=== PATIENT | male | born 1970 | race Caucasian/White ===

== ENCOUNTER 2018-01-01 14:39 | Emergency (ER) | payer BC, SELFPAY ==
[2018-01-01] VITALS (7 sets, daily range): BP systolic 112–167; BP diastolic 70–121; PULSE 62–105; RESP 12–22; TEMP 36.6; O2SAT 95–99; BMI 26.2
--- NOTE | 2018-01-01 14:49 | EKG12_ITS ---
Test Reason : CP Blood Pressure : / mmHG Vent. Rate : 085 BPM Atrial Rate : 085 BPM P-R Int : 154 ms QRS Dur : 080 ms QT Int : 374 ms P-R-T Axes : 061 038 059 degrees QTc Int : 445 ms Normal sinus rhythm Normal ECG Confirmed by KRISTAL RAMOS, ZACHARY ([id number]), greeting card editor LUC DOYLE ([id number]) on 01/02/2018 2:28:49 PM Referred By: SHANT Confirmed By:ZACHARY GIRALDO MD
[2018-01-01] MEDS: Aspirin 81 MG TAB.CHEW 324 MG PO (14:54)
--- NOTE | 2018-01-01 15:00 | RAD_ITS ---
STUDY: X-RAY CHEST REASON FOR EXAM: Male, 47 years old. CHEST PAIN X 2 DAYS TECHNIQUE: Single AP portable view of the chest. COMPARISON: December 26, 2008 FINDINGS: There is a stable left upper chest calcification suggesting a calcified granuloma. There is no demonstrated pleural abnormality. Normal size heart. Normal mediastinum and seema. Normal visualized pulmonary arteries. Normal visualized aortic arch and descending thoracic aorta. Normal visualized thoracic spine. Normal visualized ribs, clavicles, and shoulders. There is no demonstrated abnormality of the visualized soft tissue structures of the upper abdomen. RAD/Chest 1 View (Portable) IMPRESSION: No acute disease is demonstrated. Electronically Signed: Nidia Marte MD at 15:31 EDT , Service support ,
[2018-01-01] MEDS: morphine 8 MG/ML Syringe IV (15:14)
[2018-01-01] MEDS: Ondansetron 4 MG/2 ML Vial IV (15:15)
[2018-01-01 15:18] LABS: Absolute Lymphocyte Count 0.86 X10^3/ul (0.83-4.51); Absolute Neutrophil Count 2.5 X10^3/uL (2.0-7.7); Basophil# 0.03 X10^3/uL; Basophil% 0.8 % (0-1); Eosinophil# 0.03 X10^3/uL; Eosinophils% 0.8 % (0-5); Hematocrit 43.3 % (40-54); Lymphocyte # 0.86 X10^3/ul (4.0); Lymphocyte % 21.8 % (19-41); Mean Corp Hgb Conc 34.6 g/gl (32-36); Mean Corpuscular Hgb 35.3 pg (27.0-32.0); Mean Corpuscular Volume 101.9 fL (80-94); Mean Platelet Vol. 10.4 fl (6.2-12.0); Monocyte% 12.7 % (0-10); Neutrophil # 2.52 X10^3/uL (2.7-7.7); Neutrophil % 63.9 % (47-70); POSITIVE COUNT NO; POSITIVE DIFFERENTIAL NO; POSITIVE MORPHOLOGY NO; Platelet Count 83 K/mm3 (150-450); RBC Distribution Width CV 12.3 % (11.6-14.6); RBC Distribution Width SD 45.8 fl (35.1-43.9); Red Blood Count 4.25 M/mm3 (4.6-6.2); White Blood Count 3.9 K/mm3 (4.4-11.0)
--- NOTE | 2018-01-01 15:18 | ED.VISSUMM ---
- ER Visit Summary Date of Service: 01/01/18 Chief Complaint: [] Chest pain History of Present Illness: The patient is a 47 M [] complains of left-sided chest pain that began before noon he was driving his car he had no associated symptoms of vomiting shortness of breath diaphoresis or radiation. He became concerned about the pain he came in for evaluation on arrival his symptoms had resolved he has no history of TX PE DVT he denies smoking alcohol or illicit drug use no history of high cholesterol or family history he can recall. 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 He assures me he is asymptomatic now his review of systems otherwise all negative he indicates he has been under quite a bit of stress. Physical Examination: [] Pressure is 170 over about 80 he is in no distress head neck chest unremarkable lungs are clear heart tones are normal abdomen soft nontender upper lower extremities unremarkable neurologically is awake moving all 4 for his lower extremity feel no sinus clubbing or edema pulses are symmetric he assures me he is without any pain he has no symptoms now Test Results: [] Emergency Department Course and Treatment: []EEG shows a sinus rhythm nothing acute his labs and troponin are negative and his chest x-ray please see all those reports on reevaluation vital signs are normal his blood pressure now is 130/80 with no specific therapy he assures me he feels fine and has not has no symptoms. We discussed the chest pain the need for admission for further management, however he declined admission stating he wanted to go home and preferred outpatient management he understood the risk of sudden cardiac , clearly demonstrated capacity to understand my concerns but again preferred outpatient management he did agree to stay for a second troponin and if this is negative he will follow-up his family doctor to undergo further outpatient management and I will also give him referral to [facility], he will take 2 baby aspirin a day until followed up, second troponin is pending and will be on the chart Treatment Plan: [] Disposition: [] Home stable pending second troponin Impression: [] chest Pain resolved patient declined admission This note was generated with [employer] dictation software. It may contain incorrect words, spelling, and punctuation that were not noted in review of the chart prior to signing ED Disposition - Plan for ED Patient: Chief Complaint: Chest Pain Instructions: ED Chest Pain Atypical Unkn Cause Referrals: Ned Martníez MD [STAFF PHYSICIAN] - Temo Cruz MD [Primary Care Provider] -
[2018-01-01] MEDS: cloNIDine HCl 0.1 MG Tablet 0.2 MG PO (15:24)
[2018-01-01 15:29] LABS: Anion Gap 8 (5-15); BUN 6 mg/dL (7-18); BUN/Creat Ratio 5.2 RATIO (10-20); Calcium,Total 8.9 mg/dL (8.5-10.1); Chloride 102 mmol/L (98-107); Creatinine, Serum 1.15 mg/dL (0.70-1.30); EST Glomerular Filtration Rate 72 mL/min (>60); Est Glom Filt Rate - Afr Amer 87 mL/min (>60); Estimated Creatinine Clearance 84.58 ml/min; Glucose 113 mg/dL (74-106); Potassium 3.8 mmol/L (3.5-5.1); Sodium Level 139 mmol/L (136-145)
[2018-01-01 15:43] LABS: AST(SGOT) 94 U/L (15-37); Alanine Aminotransfer ALT/SGPT 70 U/L (16-61); Alkaline Phosphatase 123 U/L (45-117); Bilirubin, Direct 0.53 mg/dL (0.00-0.30); Globulin 4.2 g/dL (2.2-4.2); Protein, Total 8.2 g/dL (6.4-8.2)
[2018-01-01 15:47] LABS: BNP,B-Type NATRIURETIC PEPTIDE 75.2 pg/mL (0-100)
--- NOTE | 2018-01-01 16:29 | ED.DEP ---
ED Disposition - Plan for ED Patient: Chief Complaint: Chest Pain Instructions: ED Chest Pain Atypical Unkn Cause Referrals: Temo Cruz MD [Primary Care Provider] - Ned Martínez MD [STAFF PHYSICIAN] -
== END 2018-01-01 17:55 | disposition home or self-care (01) ==
PROVIDERS: Emergency Provider Emergency Medicine; Family Provider Physician Assistant; PCP Family Medicine
DX: R07.9 Chest pain, unspecified (principal); Z79.899 Other long term (current) drug therapy
CPT/HCPCS: 71045; 80048; 80076; 83880; 84484; 85025; 93005; 96374; 96375; 99284; J7030; A4216; J2405

== ENCOUNTER 2018-01-05 10:05 | Observation (INO) | payer BC, SELFPAY ==
[2018-01-05] VITALS (11 sets, daily range): BP systolic 124–156; BP diastolic 90–111; PULSE 65–118; RESP 10–19; TEMP 35.9–37.2; O2SAT 92–98; BMI 25.7; BMI 25.1; BMI 25.2
--- NOTE | 2018-01-05 10:46 | RAD_ITS ---
STUDY: X-RAY CHEST REASON FOR EXAM: Male, 48 years old. Substernal chest pain TECHNIQUE: Single AP portable view of the chest. COMPARISON: 01/01/2018 FINDINGS: The lungs are clear and expanded. There is no demonstrated pleural abnormality. Normal size heart. Normal mediastinum and seema. Normal visualized pulmonary arteries. Normal visualized aortic arch and descending thoracic aorta. Normal visualized thoracic spine. Normal visualized ribs, clavicles, and shoulders. There is no demonstrated abnormality of the visualized soft tissue structures of the upper abdomen. RAD/Chest 1 View (Portable) IMPRESSION: No acute pulmonary process Electronically Signed: Ludwin Mcgrath MD at 11:10 EDT , Service support ,
--- NOTE | 2018-01-05 10:46 | EKG12_ITS ---
Test Reason : CP Blood Pressure : / mmHG Vent. Rate : 116 BPM Atrial Rate : 116 BPM P-R Int : 152 ms QRS Dur : 084 ms QT Int : 322 ms P-R-T Axes : 049 026 057 degrees QTc Int : 447 ms Sinus tachycardia Otherwise normal ECG Confirmed by KRISTAL RAMOS, ZACHARY ([id number]), sports editor LUC DOYLE ([id number]) on 01/08/2018 3:20:54 PM Referred By: AUDRA Confirmed By:ZACHARY GIRALDO MD
--- NOTE | 2018-01-05 10:46 | CT_ITS ---
STUDY: CTA CHEST REASON FOR EXAM: Male, 48 years old. Substernal chest pain RADIATION DOSAGE (If Supplied By Facility): CTDIvol = ( 13.34 ) mGy, DLP = ( 513.75 ) mGycm TECHNIQUE: The examination was performed with the intravenous administration of 100cc ml of Isovue 370 contrast material. Post-processing of the angiographic images was performed, with multiplanar reformation and 3D reconstruction. Individualized dose optimization techniques were used for this CT. COMPARISON: None. FINDINGS: There is limited enhancement of the main pulmonary artery and right and left pulmonary arteries. There is limited enhancement of the bilateral peripheral pulmonary arteries. There is no demonstrated pulmonary embolism. However, because the bolus within the pulmonary arteries is not optimal and a subtle filling defect could be present and overlooked. Normal thoracic aorta and visualized great vessels. There is no demonstrated aortic dissection. Normal heart and pericardium. Normal mediastinum. Normal hilar regions. Normal visualized trachea and bronchi. The lungs are well expanded. Normal pulmonary parenchyma. Normal pleura. Normal chest wall structures. Normal osseous structures. Limited cuts through the upper abdomen show a retrocardiac hiatal hernia, and diffuse fatty infiltration of the liver. CT/CTA Chest W/WO Contrast IMPRESSION: No demonstrated PE, or thoracic aortic aneurysm or dissection. However, contrast bolus within the pulmonary arteries is not optimal. No superimposed acute pulmonary process Prominent retrocardiac hiatal hernia Fatty liver Electronically Signed: Ludwin Mcgrath MD at 11:40 EDT , Service support ,
[2018-01-05] MEDS: Aspirin 81 MG TAB.CHEW 324 MG PO (10:59)
[2018-01-05 11:07] LABS: Absolute Lymphocyte Count 1.79 X10^3/ul (0.83-4.51); Absolute Neutrophil Count 2.4 X10^3/uL (2.0-7.7); Basophil# 0.04 X10^3/uL; Basophil% 0.8 % (0-1); Eosinophil# 0.13 X10^3/uL; Eosinophils% 2.7 % (0-5); Hematocrit 42.5 % (40-54); Lymphocyte # 1.79 X10^3/ul (4.0); Lymphocyte % 36.6 % (19-41); Mean Corpuscular Volume 100.7 fL (80-94); Mean Platelet Vol. 10.4 fl (6.2-12.0); Monocyte# 0.57 X10^3/uL; Monocyte% 11.7 % (0-10); Neutrophil # 2.36 X10^3/uL (2.7-7.7); Neutrophil % 48.2 % (47-70); Platelet Count 118 K/mm3 (150-450); RBC Distribution Width CV 12.7 % (11.6-14.6); RBC Distribution Width SD 47.7 fl (35.1-43.9); Red Blood Count 4.22 M/mm3 (4.6-6.2); White Blood Count 4.9 K/mm3 (4.4-11.0)
[2018-01-05 11:13] LABS: Mean Corp Hgb Conc 35.3 g/gl (32-36); Mean Corpuscular Hgb 35.5 pg (27.0-32.0); POSITIVE COUNT NO; POSITIVE DIFFERENTIAL NO; POSITIVE MORPHOLOGY NO
[2018-01-05 11:14] LABS: Anion Gap 8 (5-15); BUN 11 mg/dL (7-18); BUN/Creat Ratio 10.5 RATIO (10-20); Calcium,Total 9.2 mg/dL (8.5-10.1); Chloride 105 mmol/L (98-107); Creatinine, Serum 1.05 mg/dL (0.70-1.30); EST Glomerular Filtration Rate 80 mL/min (>60); Est Glom Filt Rate - Afr Amer 97 mL/min (>60); Estimated Creatinine Clearance 91.63 ml/min; Glucose 105 mg/dL (74-106); Potassium 3.5 mmol/L (3.5-5.1); Sodium Level 142 mmol/L (136-145)
[2018-01-05 11:15] LABS: AST(SGOT) 137 U/L (15-37); Alanine Aminotransfer ALT/SGPT 82 U/L (16-61); Albumin, Serum 4.2 g/dL (3.2-5.0); Alkaline Phosphatase 150 U/L (45-117); Bilirubin, Direct 0.33 mg/dL (0.00-0.30); Globulin 4.4 g/dL (2.2-4.2); Protein, Total 8.6 g/dL (6.4-8.2)
--- NOTE | 2018-01-05 12:33 | ED.DCSUM_ITS ---
- ER Visit Summary Date of Service: 01/05/18 Chief Complaint: Chest pain History of Present Illness: The patient is a 48 M chest pain for several days. The pain waxes and wanes. It is retrosternal. Associated with shortness of breath. He was seen previously. His workup was unremarkable and he was discharged for an outpatient stress test. The patient was unable to schedule the test. He is a smoker, but denies any other risk factors. Denies any cardiac history. Denies any history of PE or dissection. Does report a high level of stress. He does report a history of alcohol abuse, but now seldom drinks alcohol. He was hospitalized in the past for liver and renal failure which she attributes to stress and alcohol use. He follows with his primary care doctor for checkups every 6 months. Physical Examination: Afebrile. Tachycardic. Otherwise vitals normal. Nontoxic and in no acute distress. Alert and oriented. Skin appears normal. Heart regular. Lungs clear. Abdomen soft. Skin, calves, pulses otherwise unremarkable. Test Results: EKG showed sinus rhythm. No sign of acute ischemia or infarction pattern. Liver enzymes slightly elevated. CBC unremarkable. Troponin normal. CTA was slightly limited, but there was no evidence of dissection or large infarct. Emergency Department Course and Treatment: Patient was placed on a monitor. Chest pain workup performed. Workup largely unremarkable. He is low risk for heart disease, but given his continued symptoms and that he was unable to get a stress test done, I called the hospitalist to admit. Treatment Plan: As above Disposition: Admission Impression: 1. Chest pain This note was generated with [employer] dictation software. It may contain incorrect words, spelling, and punctuation that were not noted in review of the chart prior to signing ED Disposition - Plan for ED Patient: Chief Complaint: Chest Pain
--- NOTE | 2018-01-05 14:48 | PCM.HP.STD ---
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 He was seen in ER on 01/01 2018 and was sent home after 2 troponins were negative. Patient chest pain resolved when he left the ER but came back on weekend which has persistent left-sided chest pain without associated symptoms of shortness of breath, palpitation, dizziness or diaphoresis. EKG shows sinus tachycardia at [address]-T changes. Troponins were normal on January 01 ER visit and here too. He was transferred to [facility] during previous admission in 2014 for acute liver failure secondary to alcohol where he was kept for 21 days. Initial lab work in ER shows AST 137, ALT 82, alk phos 150. GGT 910. He states he occasionally drinks alcohol once in a week and about 1-2 drinks. He gets 6 monthly ultrasound by PCP. 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 Alcoholic hepatitis with ascites (Chronic) recent......diagnosed 12/30 Allergies No Known Allergies Allergy (Verified 01/05/18 10:09) Home Medications: Ambulatory Orders Medication Instructions Recorded Pantoprazole Sodium [Protonix] 40 mg PO DAILY 01/05/18 Surgical History: noncontributory Psychiatric History: Anxiety, Depression Smoking Status: Current some day smoker - *Family History Maternal History Items: No pertinent history - No history of heart disease in first-degree family relative Review of Systems Constitutional: Denies: Chills, Fever, Weight Change HEENT: Denies: Head Aches, Sinus Congestion, Sinus Drainage Cardiovascular: Denies: Chest Pain, Palpitations Respiratory: Denies: Cough, Shortness of breath at rest, Sputum production Gastrointestinal: Denies: Abdominal Pain, Nausea, Vomiting Genitourinary: Denies: Dysuria Musculoskeletal: Denies: Joint Pain, Joint Tenderness Skin: Denies: Rash, Wounds Neurological: Denies: Numbness, Tingling, Focal weakness Psychiatric: Denies: Anxiety, Depression, Homicidal Ideations, Suicidal Ideations Hematologic/ Lymphatic: Denies: Easy Bruising, Easy Bleeding VTE Information - Inpt Only VTE Present on Admission: No VTE Mechan Device Prophylaxis: SCD's VTE Pharm Prophylaxis ordered?: No Reason prophylaxis not ordered:: Medical Contraindication - Thrombocytopenia - Physical Exam General: Alert, Oriented x3, Cooperative HEENT: Atraumatic, PERRLA, EOMI, Normocephalic Neck: Supple, No JVD, Negative Carotid Bruits Lungs: Clear to auscultation, Normal air movement, No rhonchi, No wheeze, No rales Cardiovascular: Regular rate, Regular Rhythm, Normal S1, Normal S2, No murmurs Abdomen: Bowel Sounds Present, Soft, Non Tender Extremities: No edema, Capillary Refill Less than 3 Seconds Skin: No rashes, No breakdown Musculoskeletal: No Tenderness to Palpation of Joints or Extremities Neurological: Cranial nerves II-XII grossly intact Psych/Mental Status: Normal Affect, Appropriate Vital Signs Temp Pulse Resp BP Pulse Ox 98.7 F 72 16 143/93 H 97 01/05/18 13:17 01/05/18 13:41 01/05/18 13:17 01/05/18 13:17 01/05/18 13:17 Oxygen Delivery Method Room Air Weight: 180 lb 5.41 oz Body Mass Index (BMI) 25.1 Laboratory Tests Past 24 Hrs 01/05/18 01/05/18 01/05/18 10:10 10:10 10:10 WBC 4.9 RBC 4.22 L Hgb 15.0 Hct 42.5 MCV 100.7 H MCH 35.5 H MCHC 35.3 RDW 12.7 RDW Differential 47.7 H Plt Count 118 L MPV 10.4 Immature Gran % (Auto) 0.000 Neut % (Auto) 48.2 Lymph % (Auto) 36.6 Wilkes % (Auto) 11.7 H Eos % (Auto) 2.7 Baso % (Auto) 0.8 Absolute Neuts (auto) 2.4 Absolute Lymphs (auto) 1.79 Total Counted Not Reportable Sodium 142 Potassium 3.5 Chloride 105 Carbon Dioxide 29.0 Anion Gap 8 BUN 11 Creatinine 1.05 Estim Creat Clear Calc 91.63 Est GFR (MDRD) Af Amer 97 Est GFR (MDRD) Non-Af 80 BUN/Creatinine Ratio 10.5 Glucose 105 Calcium 9.2 Total Bilirubin 0.70 Direct Bilirubin 0.33 H GGT AST 137 H ALT 82 H Alkaline Phosphatase 150 H Troponin I < 0.02 Total Protein 8.6 H Albumin 4.2 Globulin 4.4 H Ethyl Alcohol 01/05/18 01/05/18 01/05/18 14:20 14:20 14:20 WBC RBC Hgb Hct MCV MCH MCHC RDW RDW Differential Plt Count MPV Immature Gran % (Auto) Neut % (Auto) Lymph % (Auto) Wilkes % (Auto) Eos % (Auto) Baso % (Auto) Absolute Neuts (auto) Absolute Lymphs (auto) Total Counted Sodium Potassium Chloride Carbon Dioxide Anion Gap BUN Creatinine Estim Creat Clear Calc Est GFR (MDRD) Af Amer Est GFR (MDRD) Non-Af BUN/Creatinine Ratio Glucose Calcium Total Bilirubin Direct Bilirubin GGT Pending AST ALT Alkaline Phosphatase Troponin I Pending Total Protein Albumin Globulin Ethyl Alcohol Pending Assessment/Plan The patient is a 48 year old M with history of chronic alcoholic hepatitis with history of acute hepatic failure secondary to alcohol in 2014 came to ER with chest pain for last 4-5 days. He was seen in ER on 01/01 2018 and was sent home after 2 troponins were negative. Patient chest pain resolved when he left the ER but came back on weekend which has persistent left-sided chest pain without associated symptoms of shortness of breath, palpitation, dizziness or diaphoresis. EKG shows sinus tachycardia at [address]-T changes. Troponins were normal on January 01 ER visit and here too. He was transferred to [facility] during previous admission in 2014 for acute liver failure secondary to alcohol where he was kept for 21 days. Initial lab work in ER shows AST 137, ALT 82, alk phos 150. GGT 910. He states he occasionally drinks alcohol once in a week and about 1-2 drinks. He gets 6 monthly ultrasound by PCP. 1. Atypical chest pain most probably musculoskeletal: Patient is being admitted in PCU. On ACS protocol with serial troponin enzymes. Treadmill nuclear stress test tomorrow morning if troponins are negative. 2. Chronic alcoholic hepatitis with elevated liver enzymes and mild thrombocytopenia: Alcohol cessation advice was given. His labs was history that his drinking more than what he said. 3. Borderline hypertension: He is concerned of high blood pressure. Monitor blood pressure, and if persistently more than 140/90 mmhg, need lisinopril 5 mg daily to start with. DVT prophylaxis: On bilateral SCDs. Pharmacological prophylaxis contraindicated because of thrombocytopenia. This note was generated with [employer] dictation software. Every effort was made to ensure accuracy, however computerized senior quality control inspector mistakes may persist. Code Visit OBSV E&M: 60928 Initial observation care L3
[2018-01-05 14:53] LABS: GGTP 910 U/L (15-85)
[2018-01-05] MEDS: Lisinopril 5 MG Tablet PO (15:41)
[2018-01-05 15:50] LABS: Magnesium 1.6 mg/dL (1.6-2.6)
[2018-01-05 18:28] LABS: BNP,B-Type NATRIURETIC PEPTIDE 4.4 pg/mL (0-100)
[2018-01-05 18:30] LABS: Amphetamine Urine VISTA NEGATIVE (<1000 ng/mL); Barbiturate Urine VISTA NEGATIVE (< 200 ng/mL); Benzodiazepine Urine VISTA NEGATIVE (< 200 ng/mL); Cocaine Urine VISTA NEGATIVE (< 300 ng/mL); Ecstacy Urine VISTA NEGATIVE (< 500 ng/mL); Methadone Urine VISTA NEGATIVE (< 300 ng/mL); PCP Urine VISTA NEGATIVE (< 25 ng/mL); THC Urine VISTA NEGATIVE (< 50 ng/mL); Vista UDS pH Range 6
[2018-01-06 02:04] VITALS: BP 150/95; PULSE 73; RESP 18; TEMP 35.9; O2SAT 97
[2018-01-06 03:41] VITALS: PULSE 59
[2018-01-06 05:14] LABS: Absolute Neutrophil Count 1.7 X10^3/uL (2.0-7.7); Basophil# 0.01 X10^3/uL; Basophil% 0.3 % (0-1); Eosinophil# 0.08 X10^3/uL; Eosinophils% 2.7 % (0-5); Hematocrit 42.3 % (40-54); Hemoglobin 14.9 g/dl (13.0-16.5); Lymphocyte % 29.9 % (19-41); Mean Corp Hgb Conc 35.2 g/gl (32-36); Mean Corpuscular Hgb 35.9 pg (27.0-32.0); Mean Corpuscular Volume 101.9 fL (80-94); Mean Platelet Vol. 10.4 fl (6.2-12.0); Monocyte# 0.36 X10^3/uL; Neutrophil # 1.66 X10^3/uL (2.7-7.7); Neutrophil % 55.1 % (47-70); Platelet Count 58 K/mm3 (150-450); RBC Distribution Width CV 12.4 % (11.6-14.6); RBC Distribution Width SD 46.1 fl (35.1-43.9); Red Blood Count 4.15 M/mm3 (4.6-6.2)
[2018-01-06 05:15] LABS: POSITIVE COUNT NO; POSITIVE DIFFERENTIAL NO; POSITIVE MORPHOLOGY NO
[2018-01-06 05:25] LABS: International Normalized Ratio 1.1; Prothrombin Time (Protime)PT. 13.7 SECONDS (11.7-14.9)
[2018-01-06 05:26] LABS: Partial Thromboplast Time 30.8 Seconds (24.1-36.2)
[2018-01-06 05:49] LABS: Anion Gap 10 (5-15); BUN 10 mg/dL (7-18); BUN/Creat Ratio 10.7 RATIO (10-20); Calcium,Total 8.7 mg/dL (8.5-10.1); Chloride 100 mmol/L (98-107); Cholesterol 242 mg/dL (200); Creatinine, Serum 0.94 mg/dL (0.70-1.30); EST Glomerular Filtration Rate 92 mL/min (>60); Est Glom Filt Rate - Afr Amer 111 mL/min (>60); Estimated Creatinine Clearance 102.36 ml/min; Glucose 88 mg/dL (74-106); High Density Lipoprotein 136 mg/dL; Potassium 3.6 mmol/L (3.5-5.1); Sodium Level 140 mmol/L (136-145); Thyroid Stim Hormone (TSH) 7.38 uIU/mL (0.358-3.74); Triglycerides 121 mg/dL; Very Low Density Lipoprotein 24 mg/dL (5-40)
[2018-01-06 05:51] VITALS: BP 155/99; PULSE 61; RESP 18; TEMP 36.9; O2SAT 98
[2018-01-06] MEDS: Lisinopril 5 MG Tablet PO (05:52)
--- NOTE | 2018-01-06 05:55 | EKG12_ITS ---
Test Reason : AM EKG Blood Pressure : / mmHG Vent. Rate : 059 BPM Atrial Rate : 059 BPM P-R Int : 148 ms QRS Dur : 084 ms QT Int : 446 ms P-R-T Axes : 042 022 035 degrees QTc Int : 441 ms Sinus bradycardia Otherwise normal ECG When compared with ECG of 05-JAN-2018 10:06, MANUAL COMPARISON REQUIRED, DATA IS UNCONFIRMED Confirmed by KRISTAL RAMOS, ZACHARY ([id number]), copy editor LUC DOYLE ([id number]) on 01/08/2018 3:31:23 PM Referred By: RITIKA Confirmed By:ZACHARY GIRALDO MD
[2018-01-06 07:00] VITALS: PULSE 72
[2018-01-06 08:25] LABS: T4 Free Direct 0.96 ng/dL (0.76-1.46)
[2018-01-06 09:32] VITALS: BP 139/96; PULSE 72; RESP 16; TEMP 36.9; O2SAT 95
--- NOTE | 2018-01-06 10:45 | STRESSREP ---
Stress Test Report Exercise myocardial perfusion stress test. 48-year-old man with a history of chest pain. Stress protocol: Resting EKG demonstrates normal sinus rhythm with a rate of 64 bpm normal intervals are noted. The patient exercised according to the regular Gurvinder protocol for total duration of 9 minutes attaining a maximum heart rate of 162 beats which is 94% maximum predicted heart rate maximum workload of 10.1 metabolic equivalents. At rest there were no ST wave changes noted suggest ischemia peak exercise upsloping ST changes only were noted would not be the criteria for ischemia. No clinical angina was noted. Resting blood pressure is 130/96 with a peak blood pressure 166/96. Myocardial perfusion protocol. 11.1 mCi of technetium 99m sestamibi was injected at rest. The patient exercised according to regular Gurvinder protocol for 9 minutes attaining a maximum workload of 10.1 metabolic equivalents. At peak exercise 33.3 mCi of technetium 99m sestamibi was injected stress images were obtained stress and rest images were reconstructed and compared in the short axis vertical long and horizontal long axis. Gated images were also obtained pre- Perfusion SPECT analysis: Review of the stress images demonstrate normal uptake of tracer noted in all areas myocardium except for the basal to mid inferior wall. There is reduction of perfusion in this area which could be secondary to diaphragmatic and GI attenuation artifact likely rather than infarct. No areas of reversibility are noted suggest ischemia. Gated SPECT analysis. The gated ejection fraction is 63%. Conclusion: Exercise myocardial perfusion stress test with no evidence of ischemia at a high workload. No clinical angina noted. Normal ejection fraction.
--- NOTE | 2018-01-06 11:04 | PCM.DC ---
- Discharge Diagnoses Current Active Problems: Current Active and Chronic Problems Atypical chest pain (Chronic) You will use the following diet at home:: Cardiac Allergies/Adverse Reactions: Allergies No Known Allergies Allergy (Verified 01/05/18 10:09) Medications to take at Discharge Pantoprazole Sodium [Protonix] 40 mg PO DAILY 01/05/18 Lisinopril [Prinivil] 10 mg PO DAILY #30 tab 01/06/18 The following prescriptions were given: Lisinopril [Prinivil] 10 mg PO DAILY #30 tab Primary Care Physician: Temo Cruz MD [Primary Care Provider] - Please follow up with your Primary Care Physician in: in 2 weeks for alcoholic cirrhosis & HTN
--- NOTE | 2018-01-06 11:05 | DS.PCM_ITS ---
Discharge Date and Diagnosis Date of Admission: 01/05/18 Date of Discharge: 01/06/18 - Primary Discharge Diagnosis Atypical chest pain most probably from gastroesophageal reflux disease/GERD/ hepatic dyspepsia. New diagnosis, essential hypertension - Secondary Discharge Diagnosis Chronic Problems Atypical chest pain (Chronic) Thrombocytopenia (Chronic) Alcoholism (Chronic) Macrocytic anemia (Chronic) HTN (hypertension) (Chronic) Acquired hypoprothrombinemia (Chronic) due to liver disease/alcoholism Alcoholic hepatitis with ascites (Chronic) recent......diagnosed 12/30 Hospital Course and Treatment Imaging Results: 01/06/18 05:55 Nuclear Stress Test - Treadmil [NM] AM (NON MEDS) Operations: None Summary of Care Provided: [] The patient is a 48 year old M with history of chronic alcoholic hepatitis with history of acute hepatic failure secondary to alcohol in 2014 came to ER with chest pain for last 4-5 days. Patient had persistent left-sided chest pain without associated symptoms of shortness of breath, palpitation, dizziness or diaphoresis. EKG shows sinus tachycardia at [address]-T changes. Troponins were normal on January 01 ER visit and here too. He was transferred to [facility] during previous admission in 2014 for acute liver failure secondary to alcohol where he was kept for 21 days. Initial lab work in ER shows AST 137, ALT 82, alk phos 150. GGT 910. He states he occasionally drinks alcohol once in a week and about 1-2 drinks. He gets 6 monthly ultrasound by PCP. General: Alert, Oriented x3, Cooperative HEENT: Atraumatic, PERRLA, EOMI, Normocephalic Neck: Supple, No JVD, Negative Carotid Bruits Lungs: Clear to auscultation, Normal air movement, No rhonchi, No wheeze, No rales Cardiovascular: Regular rate, Regular Rhythm, Normal S1, Normal S2, No murmurs Abdomen: Bowel Sounds Present, Soft, Non Tender Extremities: No edema, Capillary Refill Less than 3 Seconds Skin: No rashes, No breakdown Musculoskeletal: No Tenderness to Palpation of Joints or Extremities Neurological: Cranial nerves II-XII grossly intact Psych/Mental Status: Normal Affect, Appropriate 1. Atypical chest pain most probably musculoskeletal: Patient is being admitted in PCU. On ACS protocol with serial troponin enzymes. Patient had serial troponin enzymes negative. Exercise myocardial perfusion stress test was done which shows no evidence of ischemia at high workload. No clinical angina. Normal EF, 63%. 2. Chronic alcoholic hepatitis with elevated liver enzymes and mild thrombocytopenia: As mentioned above, biochemical lab is consistent with moderate amount of drinking alcohol with elevated GGT, AST and alkaline phosphatase and does not corroborate the patient history of drinking once or 2 drinks in a week.Alcohol cessation advice was given. 3. Hypertension, new diagnosis: He is concerned of high blood pressure. During hospital stay, blood pressure was monitored in the range of 148/111 - 150 /95 and blood pressure is high. Patient discharged on lisinopril 10 mg daily. DVT prophylaxis: On bilateral SCDs. Pharmacological prophylaxis contraindicated because of thrombocytopenia. This note was generated with [employer] dictation software. Every effort was made to ensure accuracy, however computerized maternal child nurse mistakes may persist. Home Medications: Medications to take at Discharge Pantoprazole Sodium [Protonix] 40 mg PO DAILY 01/05/18 Lisinopril [Prinivil] 10 mg PO DAILY #30 tab 01/06/18 Following Prescrptions Were Given to Patient: Lisinopril [Prinivil] 10 mg PO DAILY #30 tab Primary Care Physician: Temo Cruz MD [Primary Care Provider] - Please follow up with your Primary Care Physician in: in 2 weeks for alcoholic cirrhosis & HTN Medical Necessity - Tobacco Use Smoking Status: Current some day smoker Meaningful Use Info Meaningful Use Diagnoses (Choose all that apply): None applicable Code Visit OBSV E&M: 66909 Observation care discharge
== END 2018-01-06 11:05 | disposition home or self-care (01) ==
LOC: ED 10:51 → PCU 12:29
PROVIDERS: Admitting Provider Internal Medicine; Emergency Provider Emergency Medicine; Family Provider Family Medicine; PCP Family Medicine; Visit Provider Internal Medicine
DX: R07.89 Other chest pain (principal); R06.02 Shortness of breath; F17.200 Nicotine dependence, unspecified, uncomplicated; K70.11 Alcoholic hepatitis with ascites; I10 Essential (primary) hypertension; D69.6 Thrombocytopenia, unspecified; K21.9 Gastro-esophageal reflux disease without esophagitis; Z79.899 Other long term (current) drug therapy
CPT/HCPCS: 36415; 71045; 71275; 78452; 80048; 80061; 80076; 80307; 80320; 82977; 83735; 83880; 84439; 84443; 84484; 85025; 85610; 85730; 93005; 93017; 96360; 96361; 99218; 99285; A9500; J7030; J7040; Q9967; A4216; G0378; G0480

== ENCOUNTER 2019-04-05 07:19 | Emergency (ER) | payer BC, SELFPAY ==
[2019-04-05 07:20] VITALS: BP 149/103; PULSE 106; RESP 17; TEMP 36.5; O2SAT 100; BMI 24.7
--- NOTE | 2019-04-05 08:19 | CT_ITS ---
STUDY: CT ABDOMEN AND PELVIS WITH CONTRAST REASON FOR EXAM: Male, 49 years old. Intermittent abdominal pain for couple of months RADIATION DOSAGE (If Supplied By Facility): CTDIvol = ( 11.15 ) mGy, DLP = ( 710.04 ) mGycm TECHNIQUE: Transaxial images were obtained from the dome of the diaphragm to the symphysis pubis with oral contrast. 100 ml of Isovue 300 contrast was administered. Sagittal and coronal images were reconstructed. Individualized dose optimization techniques were used for this CT. COMPARISON: CTA chest 01/05/2018, x-ray chest 01/05/2018. FINDINGS: Body wall soft tissues: No acute process. Osseous structures: No acute process. Inferior chest: No acute process. Hepatobiliary: Prominent hepatic steatosis, with hepatomegaly, craniocaudal right liver 24.6 cm. Normal gallbladder and biliary tree. A few small lymph nodes adjacent to the jacy hepatis, not pathologically enlarged. Pancreas: No acute process. Spleen: Splenomegaly, craniocaudal spleen 13.6 cm, anterior-posterior 19.3 cm. Scattered calcifications consistent with old granulomas disease. Adrenal glands: Normal. Urogenital: Normal kidneys, collecting systems, ureters, urinary bladder, prostate and seminal vesicles. Pelvic floor and sidewalls and retroperitoneum: No mass or adenopathy. Vasculature: No acute process. Stomach: No acute process. Small bowel and mesentery: There is mild circumferential thickening of wall of the 2nd portion of the duodenum with mild mucosal hyperemia and slight induration in the adjacent fat in a pattern that suggests the possibility of mild acute duodenitis. In the same segment, there is a rounded fluid-filled thin-walled focus measuring 1.95 cm in diameter with mildly hyperemic diaz which could represent either a small duodenal diverticulum, or penetrating ulcer. There is no evidence of perforation. Coreas image saved to the PACS archive. The remaining small bowel is normal. Large bowel: Normal appendix. Unremarkable large bowel and rectum. Free fluid or free air: None. CT/Abdomen/Pelvis WITH Contrast IMPRESSION: 1. Mild inflammatory features of the 2nd portion of the duodenum suggesting duodenitis associated with a small fluid collection partially exophytic from the bowel wall which may represent a small duodenal diverticulum, or ulcer, without perforation. 2. Prominent hepatic steatosis with hepatomegaly. 3. Splenectomy. Electronically Signed: Jerson Currie MD at 10:58 EDT Tel , Service support ,
[2019-04-05 08:38] LABS: Absolute Neutrophil Count 3.7 X10^3/uL (2.0-7.7); Basophil# 0.01 X10^3/uL; Basophil% 0.2 % (0-1); Eosinophil# 0.04 X10^3/uL; Eosinophils% 0.8 % (0-5); Hemoglobin 12.9 g/dl (13.0-16.5); Lymphocyte % 15.9 % (19-41); Mean Corp Hgb Conc 33.9 g/gl (32-36); Mean Corpuscular Hgb 35.8 pg (27.0-32.0); Mean Corpuscular Volume 105.6 fL (80-94); Mean Platelet Vol. 11.4 fl (6.2-12.0); Monocyte# 0.53 X10^3/uL; Monocyte% 10.5 % (0-10); Neutrophil # 3.65 X10^3/uL (2.7-7.7); Neutrophil % 72.4 % (47-70); POSITIVE COUNT NO; POSITIVE DIFFERENTIAL NO; POSITIVE MORPHOLOGY NO; Platelet Count 78 K/mm3 (150-450); RBC Distribution Width CV 14.1 % (11.6-14.6); RBC Distribution Width SD 54.2 fl (35.1-43.9)
[2019-04-05] MEDS: 0.9% Normal Saline 1,000 ML 150 ML IV (08:41)
[2019-04-05] MEDS: Ondansetron 4 MG/2 ML Vial IV (08:41)
[2019-04-05] MEDS: Morphine 4 MG/ML Syringe IV (08:41)
[2019-04-05 08:49] LABS: AST(SGOT) 83 U/L (15-37); Alanine Aminotransfer ALT/SGPT 36 U/L (16-61); Albumin, Serum 3.3 g/dL (3.2-5.0); Alkaline Phosphatase 199 U/L (45-117); Anion Gap 7 (5-15); BUN 7 mg/dL (7-18); Bilirubin, Direct 0.91 mg/dL (0.00-0.30); Calcium,Total 8.7 mg/dL (8.5-10.1); Chloride 102 mmol/L (98-107); Creatinine, Serum 0.87 mg/dL (0.70-1.30); EST Glomerular Filtration Rate 99 mL/min (>60); Est Glom Filt Rate - Afr Amer 120 mL/min (>60); Estimated Creatinine Clearance 109.39 ml/min; Globulin 4.7 g/dL (2.2-4.2); Glucose 107 mg/dL (74-106); Lipase 615 U/L (73-393); Potassium 3.7 mmol/L (3.5-5.1); Sodium Level 137 mmol/L (136-145)
--- NOTE | 2019-04-05 09:23 | ED.DCSUM_ITS ---
- ER Visit Summary Date of Service: 04/05/19 Chief Complaint: Abdominal pain History of Present Illness: The patient is a 49 M with a 3-day history of mid abdominal pain. He states he has had recurrent pain like this for the last several months. This particular episode started 3 days ago. He has had a hi story of liver failure. At that time he was a heavy drinker. He now drinks only occasionally. He denies any nausea, vomiting, or diarrhea with this episode. He has not had fever. He does note stress at home recently and wonders if he may have an ulcer. Physical Examination: Vital signs significant only for heart rate of 106. Patient sitting upright in bed no acute distress. He is nontoxic-appearing. Heart is regular rate and rhythm. Lung sounds are clear. Abdomen is soft with mild diffuse tenderness. No guarding or rebound. Hypoactive bowel sounds are noted. Test Results: CBC was normal white count. Hemoglobin is 12.9 and platelet count is 78,000. Chemistry studies unremarkable. LFTs revealed total bili 1.9, direct bili 0.91, alk phos 199. AST is 83 and lipase is 615. CT abdomen pelvis with contrast reveals duodenitis with an exophytic lesion, possibly duodenal diverticulum or ulcer without perforation. Emergency Department Course and Treatment: Patient was given morphine, Zofran, and IV fluids. On repeat evaluation test results are discussed with patient and at bedside. He will be started on Prilosec and given Bentyl to help with pain. He is referred to surgery for follow-up and probable EGD. Treatment Plan: [] Disposition: Discharge Impression: Abdominal pain with duodenitis This note was generated with [employer] dictation software. It may contain incorrect words, spelling, and punctuation that were not noted in review of the chart prior to signing ED Disposition - Plan for ED Patient: Disposition: Home or Assisted Living Instructions: GASTRITIS vs. ULCER Prescriptions: Dicyclomine HCl [Bentyl] 20 mg PO TIDAC #20 cap Prescription Printed Omeprazole [Prilosec] 20 mg PO DAILY #30 cap Prescription Printed Referrals: Temo Cruz MD [Primary Care Provider] - Jerson Martinez MD [STAFF PHYSICIAN] - As soon as possible
[2019-04-05 09:40] LABS: Red Blood Cells-Urine 0 SEEN /hpf (0-5); Squamous Epithelial Cells - UA 0 SEEN /hpf (0-5)
[2019-04-05 09:41] LABS: Color, Urine Yellow (Yellow); Glucose, Dipstick Normal (Normal); Ketone-Dipstick Negative (Negative); Leukocyte Esterase-Dipstick 25 /ul (Negative); Nitrite-Dipstick Negative (Negative); Occult Blood-Urine Negative /ul (Negative); Protein-Dipstick 15 mg/dl (Negative); Urine Clarity Sl. Cloudy (Clear); Urine Urobilinogen 4 mg/dl (Normal)
[2019-04-05 09:44] LABS: Urine Bilirubin Dipstick 1 mg/dL (Negative)
[2019-04-05 09:47] LABS: Bacteria RARE /hpf (None Seen); Mucous, Urine 1+ /hpf (<or=2+); White Blood Cells 0-5 SEEN /hpf (0-5)
[2019-04-05 11:31] VITALS: BP 127/94; PULSE 74; RESP 16; O2SAT 98
[2019-04-05 12:20] VITALS: BP 123/74; PULSE 62; RESP 15; O2SAT 98
== END 2019-04-05 12:21 | disposition home or self-care (01) ==
PROVIDERS: Emergency Provider Emergency Medicine; Family Provider Family Medicine; PCP Family Medicine
DX: K29.80 Duodenitis without bleeding (principal); K21.9 Gastro-esophageal reflux disease without esophagitis; I10 Essential (primary) hypertension; Z87.891 Personal history of nicotine dependence
CPT/HCPCS: 74177; 80048; 80076; 81001; 83690; 85025; 96361; 96374; 96375; 99283; J7030; Q9967; A4216; J2405

== ENCOUNTER 2022-09-12 11:15 | Observation (INO) | payer OTHER, SELFPAY ==
[2022-09-12] VITALS (7 sets, daily range): BP systolic 142–146; BP diastolic 99–107; PULSE 84–112; RESP 16–18; TEMP 36.6–37.1; O2SAT 93–100; BMI 29.0; BMI 28.8; BMI 28.3
[2022-09-12 11:47] LABS: Absolute Lymphocyte Count 0.55 X10^3/uL (0.83-4.51); Absolute Neutrophil Count 3.5 X10^3/uL (2.0-7.7); Basophil# 0.03 X10^3/uL; Basophil% 0.6 % (0-1); Eosinophil# 0.02 X10^3/uL; Eosinophils% 0.4 % (0-5); Hematocrit 31.8 % (40-54); Hemoglobin 9.3 g/dL (13.0-16.5); Lymphocyte # 0.55 X10^3/ul (0.83-4.51); Lymphocyte % 11.7 % (19-41); Mean Corp Hgb Conc 29.2 g/dL (32-36); Mean Corpuscular Hgb 24.3 pg (27.0-32.0); Mean Platelet Vol. 11.7 fl (6.2-12.0); Monocyte# 0.59 X10^3/uL; Monocyte% 12.6 % (0-10); NRBC Flagged by Analyzer 0 % (0-5); Neutrophil # 3.48 X10^3/uL (2.7-7.7); Neutrophil % 74.1 % (47-70); POSITIVE COUNT YES; POSITIVE DIFFERENTIAL YES; POSITIVE MORPHOLOGY YES; Platelet Count 78 K/mm3 (150-450); RBC Distribution Width CV 20.1 % (11.6-14.6); RBC Distribution Width SD 56.5 fl (35.1-43.9); Red Blood Count 3.83 M/mm3 (4.6-6.2); White Blood Count 4.7 K/mm3 (4.4-11.0)
[2022-09-12 11:48] LABS: Differential Indicated SCAN CRITERIA MET
[2022-09-12 11:57] LABS: Anion Gap 4 (5-15); BUN 12 mg/dL (7-18); BUN/Creat Ratio 10.3 RATIO (10-20); Calcium,Total 9.5 mg/dL (8.5-10.1); Chloride 102 mmol/L (98-107); Creatinine, Serum 1.17 mg/dL (0.70-1.30); EST Glomerular Filtration Rate 69 mL/min (>60); Est Glom Filt Rate - Afr Amer 84 mL/min (>60); Estimated Creatinine Clearance 78.66 ml/min; Glucose 121 mg/dL (74-106); Sodium Level 135 mmol/L (136-145)
[2022-09-12 12:01] LABS: Mucous, Urine 0 SEEN /hpf (<or=2+)
[2022-09-12 12:02] LABS: Color, Urine Yellow (Yellow); Glucose, Dipstick Normal (Normal); Ketone-Dipstick 5 mg/dl (Negative); Leukocyte Esterase-Dipstick 25 /ul (Negative); Nitrite-Dipstick Negative (Negative); Occult Blood-Urine 250 /ul (Negative); Protein-Dipstick 30 mg/dl (Negative); Specific Gravity, Urine 1.015 (1.002-1.030); Urine Bilirubin Dipstick Negative (Negative); Urine Clarity Sl. Cloudy (Clear); Urine Urobilinogen 1 mg/dl (Normal)
[2022-09-12 12:07] LABS: Anisocytosis 1+; Platelet Estimate SLT DEC (ADEQ)
[2022-09-12 12:12] LABS: Bacteria 1+ /hpf (None Seen); Erythrocyte Sedimentation Rate 67 mm/hr (0-20); Red Blood Cells-Urine 25-50 SEEN /hpf (0-5); Squamous Epithelial Cells - UA 0-5 SEEN /hpf (0-5); White Blood Cells 0-5 SEEN /hpf (0-5)
[2022-09-12 12:19] LABS: AST(SGOT) 48 U/L (15-37); Alanine Aminotransfer ALT/SGPT 38 U/L (16-61); Albumin, Serum 3.3 g/dL (3.2-5.0); Alkaline Phosphatase 101 U/L (45-117); Bilirubin, Direct 0.45 mg/dL (0.00-0.30); Globulin 4.9 g/dL (2.2-4.2); Lipase 400 U/L (73-393); Protein, Total 8.2 g/dL (6.4-8.2)
--- NOTE | 2022-09-12 13:31 | CT_ITS ---
STUDY: CT ABDOMEN AND PELVIS WITH CONTRAST REASON FOR EXAM: Male, 52 years old. Abdominal fullness, anemia, elevated lipase -- IV PO Contrast RADIATION DOSAGE (If Supplied By Facility): CTDIvol = ( 15.37 ) mGy, DLP = ( 1115.41 ) mGycm TECHNIQUE: Transaxial images were obtained from the dome of the diaphragm to the symphysis pubis without oral contrast. Oral and amp; IV Gastrografin and amp; 100mL Isovue-300 was administered. Sagittal and coronal images were reconstructed. Individualized dose optimization techniques were used for this CT. COMPARISON: 04/05/2019 FINDINGS: The visualized lung bases are unremarkable. The visualized portions of the heart are within normal limits. There is a diffuse contour abnormality of the liver consistent with cirrhotic changes. Normal gallbladder and extrahepatic biliary system. There is mild splenomegaly. 7 cm round mass of water attenuation with peripheral contrast enhancement within the uncinate process of the pancreas worrisome for a pancreatic cyst, pancreatic pseudocyst, or abscess. Normal bilateral adrenal glands. Normal right kidney. Normal left kidney. Normal visualized stomach. Normal small intestine. Normal colon. The appendix is visualized and appears normal. Normal abdominal aorta. Normal inferior vena cava. Normal retroperitoneum. Normal urinary bladder. Normal abdominal wall. Normal osseous structures. CT/Abdomen/Pelvis WITH Contrast IMPRESSION: 1. Cirrhosis with mild splenomegaly consistent with portal hypertension. 2. 7 cm cystic mass in the uncinate process of the pancreas consistent with a pancreatic pseudocyst, abscess, or cyst. Electronically Signed: Jerson Prasad MD at 16:55 EST ,
--- NOTE | 2022-09-12 13:39 | EX.ED.DYSGE1 ---
HPI History of Present Illness Chief Complaint: Abd Pain Detail of Chief Complaint: Generalized abdominal pain, bloating, back pain, fatigue and epigastric duncan Informant: patient and spouse/S.O. Onset/Context/Timing Onset: Weeks Context: Sudden Onset Timing: Continuous and Waxes and wanes Quality: Fullness and pain Location: Abdomen Current Severity: Mild Maximum Severity: Severe Worsened by: Nothing specific Relieved by: Nothing Associated Symptoms Associated Symptoms: Nausea, back pain, difficulty sleeping Narrative Narrative: Patient is a 52-year-old male with history of atypical chest pain, thrombocytopenia, hematochezia due to hemorrhoids, essential hypertension, alcoholic hepatitis with cellulitis. He was admitted approximately 7.5 years ago for alcohol dependency. He was hospitalized for 28 days. He denies fever, chills night sweats. He denies bone pain but does complain of back pain. He states his pants feel tight around him. He denies change in color urine. Nuys dysuria, frequency, urgency or hematuria. He states he had 2 bowel movements today. Bowel moods were formed. No change in color, consistency or caliber. Patient denies bruising easily. He does drink on a regular basis. He states he does not drink anywhere near the amount he used to. He is a salesman. He states he has increased discomfort when he is driving. He denies ocular, visual auditory symptoms. He denies dyspnea, dyspnea on exertion, orthopnea or PND. He denies epigastric discomfort with activity. There is no radiation of the discomfort to his neck, jaw, shoulders or arms. He denies radiation of the pain to his back. He denies history of PE or DVT. He denies leg pain, swelling discoloration. He does have pale legs. He states his legs are always pale. He denies history of pancreatitis. He denies history of cholelithiasis. He denies intolerance to greasy or fried foods. Prior similar symptoms: No Recent Illness/Hospitalization: No PFSH PFSH Home Medications dicyclomine 10 mg capsule 20 mg PO TIDAC #20 caps 04/05/19 [Rx Last Taken Unknown] omeprazole 20 mg capsule,delayed release 20 mg PO DAILY #30 caps 04/05/19 [Rx Last Taken Unknown] Allergy/AdvReac Type Severity Reaction Status Date / Time No Known Allergies Allergy Verified 09/12/22 11:18 no surgical history Social History (Updated 12/01/22 @ 13:[address] Steven Perez MD) household members: spouse Smoking Status: Former smoker alcohol intake: current alcohol intake frequency: a few times a week substance use type: does not use ROS ROS ED Constitutional Constitutional ED: Denies chills, fever(s), subjective, sweats or weight loss Eyes Eyes: Denies blurry vision, change in vision or diplopia ENT ENT ED: Denies ear pain, rhinorrhea or sore throat Cardiovascular Cardiovascular: Denies chest pain, orthopnea, palpitations, paroxysmal nocturnal dyspnea or racing heartbeat Respiratory/Chest Respiratory/Chest: Denies cough, dyspnea, dyspnea on exertion, orthopnea, paroxysmal nocturnal dyspnea or sputum Gastrointestinal Gastrointestinal: Reports abdominal pain; Denies constipation, diarrhea, melena, nausea or vomiting Genitourinary Genitourinary ED: Denies dysuria, hematuria or urinary frequency Musculoskeletal Musculoskeletal: Reports back pain; Denies arthralgias, myalgias or neck pain Integumentary Denies abscess, Abrasions or rash Neurologic Neurologic: Reports weakness; Denies headache(s) or paresthesias Psychiatric Psychiatric: Denies anxiety or depression Hematologic/Lymphatic Hematologic/Lymphatic: Reports systems reviewed and no addt'l complaints, except as documented and anemia EXAM Physical Exam Const Vital Signs: 09/12/22 11:16 Temperature 98.2 F Temperature Source Temporal Pulse Rate 112 H Respiratory Rate 16 Blood Pressure 143/107 H Blood Pressure Mean 119 Pulse Ox 100 Oxygen Delivery Method Room Air Positive well developed and obese Constitutional Narrative: Patient appears uncomfortable. His abdomen appears distended. General Appearance ED: well developed, NAD and pallor; Negative for cyanotic or diaphoretic Nutritional Appearance: obese HEENT Reports moist mucous membranes HEENT Narrative: Head is atraumatic normocephalic. Ears normal. Nares patent. Mucosa moist. Uvula midline. No deviation with protrusion. No erythema or exudate the posterior pharynx. Eyes PERRL and EOMs intact bilaterally General Eye ED: Negative for pale conjunctiva or scleral icterus Neck no lymphadenopathy, supple and no JVD Chest Wall inspection of chest normal and palpation of chest normal Resp normal respiratory effort and clear to auscultation bilaterally Cardio regular rhythm, S1 normal heart sound, S2 normal heart sound and no murmurs Rate: tachycardic GI normal to inspection, nondistended, normoactive bowel sounds, non-tender and no masses; Negative for non-distended or hepatosplenomegaly GI Narrative: There is slight tympany to percussion. There is no fluid wave. Inspection: abdominal distention Auscultation: hypoactive bowel sounds Palpation: soft Back/Spine no CVA tenderness Cervical Spine: Negative for cervical spine tenderness Thoracic Spine / Upper Back: Negative for thoracic spinal tenderness Lumbar Spine / Lower Back: Negative for lumbar spinal tenderness Extremity normal to inspection Neuro oriented x3, CN's II-XII intact bilaterally and no sensory deficits noted Sensorium / Orientation: alert Motor Exam: strength 5/5 throughout Psych mental status grossly normal Skin no rashes or lesions noted, no wounds and skin turgor normal General Skin Exam: elasticity normal and pallor; Negative for jaundice MDM MDM MDM Narrative Medical decision making narrative: With patient complaining of back pain abdominal fullness concern he may have malignancy. Need to also consider pancreatitis. Will obtain CBC to assess white count H&H. ESR was obtained as many screening test for malignancy. Electrolyte panel was obtained to assess renal function since he will need a CT of the abdomen upon office with contra. We will obtain liver profile as well as lipase. Urine was obtained to assess for ketones, specific gravity. Patient and were informed the results. Patient was told there are multiple possibilities for his constellation of symptoms. We will obtain a CAT scan of the abdomen and pelvis with p.o. and IV contrast to determine the etiology of his findings and symptoms. Lab Data Attestation: I reviewed the patient's lab results. Lab results narrative: White count is lower end of normal. Hemoglobin is 9.3. In December hemoglobin was greater than 15. Approximately 3 months ago his hemoglobin is 12.9. ESR is elevated at 67 basic metabolic panels marked for slight elevation glucose of 121. Hepatic profile reveals slight elevation in AST, 48. Lipase added for 100. Your urine is positive for ketone, blood. Microscopic is remarkable for 25-50 RBCs and 1+ packed. Labs: Laboratory Results - last 24 hr 09/12/22 09/12/22 09/12/22 11:40 11:40 11:40 WBC 4.7 RBC 3.83 L Hgb 9.3 L Hct 31.8 L MCV 83.0 MCH 24.3 L MCHC 29.2 L RDW Std Deviation 56.5 H RDW Coeff of Sherin 20.1 H Plt Count 78 L MPV 11.7 Immature Gran % (Auto) 0.600 Neut % (Auto) 74.1 H Lymph % (Auto) 11.7 L [place] % (Auto) 12.6 H Eos % (Auto) 0.4 Baso % (Auto) 0.6 Absolute Neuts (auto) 3.5 Absolute Lymphs (auto) 0.55 L Nucleated RBC % 0 Platelet Estimate SLT DEC Anisocytosis 1+ ESR 67 H Sodium 135 L Potassium 4.0 Chloride 102 Carbon Dioxide 29.0 Anion Gap 4 L BUN 12 Creatinine 1.17 Estim Creat Clear Calc 78.66 Est GFR (MDRD) Af Amer 84 Est GFR (MDRD) Non-Af 69 BUN/Creatinine Ratio 10.3 Glucose 121 H Calcium 9.5 Total Bilirubin Direct Bilirubin AST ALT Alkaline Phosphatase Total Protein Albumin Globulin Lipase Urine Color Urine Clarity Urine pH Ur Specific [place] Urine Protein Urine Glucose (UA) Urine Ketones Urine Occult Blood Urine Nitrite Urine Bilirubin Urine Urobilinogen Ur Leukocyte Esterase Urine RBC Urine WBC Ur Squamous Epith Cells Urine Bacteria Urine Mucus 09/12/22 09/12/22 11:40 11:40 WBC RBC Hgb Hct MCV MCH MCHC RDW Std Deviation RDW Coeff of Sherin Plt Count MPV Immature Gran % (Auto) Neut % (Auto) Lymph % (Auto) [place] % (Auto) Eos % (Auto) Baso % (Auto) Absolute Neuts (auto) Absolute Lymphs (auto) Nucleated RBC % Platelet Estimate Anisocytosis ESR Sodium Potassium Chloride Carbon Dioxide Anion Gap BUN Creatinine Estim Creat Clear Calc Est GFR (MDRD) Af Amer Est GFR (MDRD) Non-Af BUN/Creatinine Ratio Glucose Calcium Total Bilirubin 0.90 Direct Bilirubin 0.45 H AST 48 H ALT 38 Alkaline Phosphatase 101 Total Protein 8.2 Albumin 3.3 Globulin 4.9 H Lipase 400 H Urine Color Yellow Urine Clarity Sl. Cloudy Urine pH 6.0 Ur Specific [place] 1.015 Urine Protein 30 H Urine Glucose (UA) Normal Urine Ketones 5 H Urine Occult Blood 250 H Urine Nitrite Negative Urine Bilirubin Negative Urine Urobilinogen 1 H Ur Leukocyte Esterase 25 H Urine RBC 25-50 SEEN Urine WBC 0-5 SEEN Ur Squamous Epith Cells 0-5 SEEN Urine Bacteria 1+ Urine Mucus 0 SEEN Discharge Plan Triage Chief Complaint: Abd Pain ED Provider: Perez,Steven Dx/Rx/DC Orders Prescriptions: No Action omeprazole 20 MG capsule 20 mg PO DAILY Qty: 30 0RF dicyclomine 10 MG capsule 20 mg PO TIDAC Qty: 20 0RF Primary Care Provider: Temo Cruz Referrals: Temo Cruz MD [Primary Care Provider] -
--- NOTE | 2022-09-12 18:48 | HP.PCM.HOS_ITS ---
HPI - General General Date of Admission: 09/12/22 Date of Service: 09/12/22 Chief Complaint: Abdominal pain. HPI Narrative The patient is a 52 y/o M w/ PMHx: EtOH abuse, EtOH Liver Cirrhosis, Chronic anemia, Anxiety and Depression, Former tobacco use, Hx Pancreatitis who presents to the [facility] ED on 09/12/22 with history of generalized abdominal discomfort with bloating, fatigue and epigastric discomfort as well eagerness to completely discontinue alcohol use as he after a year of sobriety started occasionally drinking again reporting currently that his last drink was 5 days prior but interested in complete sobriety at this time. Read simply over the last couple days when he has been driving if he goes over a bump his abdominal pain is more severe and sharp with any alteration in the movement. He notes that he is discussed these items at length with his . He denies recently over the last 5 days any withdrawal type symptoms. He does state that he drinks potentially couple times a week and when he does drink he will have potentially 2 to max 3 ounces of vodka x2. He had been following with gastroenterology in [facility] or his cirrhosis but with COVID had stopped. Work-up in the ED included T98.2, heart rate 112, BP 143/107, respiratory rate 16, 100% on room air, CBC with WC 4.7, hemoglobin 9.3, MCV 83, platelets 78 with lymphopenia, ESR 67, CMP with sodium 135, glucose 121, direct bilirubin 0.45, AST/ALT 48/38, lipase mildly elevated 400, urinalysis with specific gravity 1.015, protein 30, ketone 5, occult blood 250, negative nitrate, leukocyte Estrace only 25, urine RBCs 25-50 with 1+ urine bacteria, CT abdomen and pelvis with cirrhosis with mild splenomegaly consistent with portal hypertension with a 7 cm cystic mass in the uncinate process of the pancreas consistent with pancreatic pseudocyst, abscess or cyst. [facility] Medical History (Updated 09/12/22 @ 22:[address] Margarita Addison MD) ALC (alcoholic liver cirrhosis) Alcoholism Chronic anemia Former tobacco use GERD (gastroesophageal reflux disease) Hypertension Thrombocytopenia Allergy/AdvReac Type Severity Reaction Status Date / Time No Known Allergies Allergy Verified 09/12/22 11:18 no significant family history (Denies marked maternal or paternal family history including HD, DM, CA.) Surgical History (Updated 09/12/22 @ 22:[address] Margarita Addison MD) No history of previous surgery Surgical History no surgical history Social History (Updated 09/12/22 @ 22:[address] Margarita Addison MD) household members: spouse and children Smoking Status: Former smoker how long ago did patient quit smoking: Quit 7 yrs prior, smoked light while drinking only. alcohol intake: current alcohol intake frequency: a few times a week Alcohol type: hard liquor details: Prior heavy, down to 2-3 oz vodka x 2-3 2-3x/week. substance use type: does not use ROS ROS Narrative Admission Review of Systems: CONSTITUTIONAL: No weight loss, fever, chills, + weakness or fatigue. HEENT: Eyes: No visual loss, blurred vision, double vision or yellow sclerae. Ears, Nose, Throat: No hearing loss, sneezing, congestion, runny nose or sore throat. SKIN: No rash or itching, lesions, wounds. CARDIOVASCULAR: No chest pain, chest pressure or chest discomfort, palpitations, edema, orthopnea, syncopal events. RESPIRATORY: No shortness of breath, cough or sputum, wheezing, hemoptysis. GASTROINTESTINAL: + anorexia, abdominal pain, No nausea, vomiting, diarrhea, melena, BRBPR. GENITOURINARY: No dysuria, frequency, urgency or retention. NEUROLOGICAL: No headache, dizziness, syncope, paralysis, ataxia, numbness or tingling in the extremities, focal weakness, change in bowel or bladder control, seizure. MUSCULOSKELETAL: + muscle, back pain, joint pain or stiffness. HEMATOLOGIC: + anemia, bleeding or bruising. LYMPHATICS: No enlarged nodes. No history of splenectomy. PSYCHIATRIC:+ history of anxiety. ENDOCRINOLOGIC: No reports of sweating, cold or heat intolerance. No polyuria or polydipsia. ALLERGIES: No history of asthma, hives, eczema or rhinitis. Vital Signs Vital Signs Vital Signs: 09/12/22 11:16 09/12/22 13:15 09/12/22 15:00 Temperature 98.2 F Temperature Source Temporal Pulse Rate 112 H Respiratory Rate 16 18 18 Blood Pressure 143/107 H Blood Pressure Mean 119 Pulse Ox 100 Oxygen Delivery Method Room Air 09/12/22 17:00 Temperature Temperature Source Pulse Rate Respiratory Rate 18 Blood Pressure Blood Pressure Mean Pulse Ox Oxygen Delivery Method Weight Weight: 208 lb Body Mass Index (BMI) 29.0 Physical Exam Narrative Physical Examination: General: Awake, alert, oriented x 3 and cooperative, seated upright in the ED bed, fatigued otherwise no acute distress. Skin: Normal color, normal turgor, no icterus, no cyanosis. HEENT: AT/NC, EOMI, PERRLA, mildly dry MM, no carotid bruits or JVD noted. Lungs: Mild diminished, greater bases, appropriate effort, no rales, ronchi or wheezing. Heart: Regular rate and rhythm; no gallop, rub audible. Abdomen: Soft, mild epigastric discomfort to palpation but no rebound or guarding, no marked distention and no evidence of any fluid wave, mildly hyperactive bowel sounds, positive HM. Extremities: No cyanosis, clubbing, or edema. Neurological: Patient awake, alert, oriented as noted, cognitive function intact; pupils equally reactive to light and accommodation, cranial nerves II- XII grossly normal, moving all 4 extremities, no focal deficits, strength mildly to moderately global decrease secondary to acute complaints. Psychiatric: Affect appears mildly fatigued otherwise normal, no acute evidence of depressive or anxiety feelings. Results Lab / Micro Data Result Diagrams: 09/12/22 11:40 09/12/22 11:40 Labs: Laboratory Results - last 24 hr 09/12/22 11:40: WBC 4.7, RBC 3.83 L, Hgb 9.3 L, Hct 31.8 L, MCV 83.0, MCH 24.3 L , MCHC 29.2 L, RDW Std Deviation 56.5 H, RDW Coeff of Sherin 20.1 H, Plt Count 78 L , MPV 11.7, Immature Gran % (Auto) 0.600, Neut % (Auto) 74.1 H, Lymph % (Auto) 11.7 L, [facility] % (Auto) 12.6 H, Eos % (Auto) 0.4, Baso % (Auto) 0.6, Absolute Neuts (auto) 3.5, Absolute Lymphs (auto) 0.55 L, Nucleated RBC % 0, Platelet Estimate SLT DEC, Anisocytosis 1+ 09/12/22 11:40: Sodium 135 L, Potassium 4.0, Chloride 102, Carbon Dioxide 29.0, Anion Gap 4 L, BUN 12, Creatinine 1.17, Estim Creat Clear Calc 78.66, Est GFR (MDRD) Af Amer 84, Est GFR (MDRD) Non-Af 69, BUN/Creatinine Ratio 10.3, Glucose 121 H, Calcium 9.5 09/12/22 11:40: ESR 67 H 09/12/22 11:40: Total Bilirubin 0.90, Direct Bilirubin 0.45 H, AST 48 H, ALT 38, Alkaline Phosphatase 101, Total Protein 8.2, Albumin 3.3, Globulin 4.9 H, Lipase 400 H 09/12/22 11:40: Urine Color Yellow, Urine Clarity Sl. Cloudy, Urine pH 6.0, Ur Specific [place] 1.015, Urine Protein 30 H, Urine Glucose (UA) Normal, Urine Ketones 5 H, Urine Occult Blood 250 H, Urine Nitrite Negative, Urine Bilirubin Negative, Urine Urobilinogen 1 H, Ur Leukocyte Esterase 25 H, Urine RBC 25-50 SEEN, Urine WBC 0-5 SEEN, Ur Squamous Epith Cells 0-5 SEEN, Urine Bacteria 1+, Urine Mucus 0 SEEN Radiology Impression Abdomen/Pelvis CT 09/12/22 13:31 IMPRESSION: 1. Cirrhosis with mild splenomegaly consistent with portal hypertension. 2. 7 cm cystic mass in the uncinate process of the pancreas consistent with a pancreatic pseudocyst, abscess, or cyst. Electronically Signed: Jerson Prasad MD at 16:55 EST , Assessment & Plan Assessment/Plan (1) Acute pancreatitis: PLAN: Plan The patient is a 52 y/o M w/ PMHx: EtOH abuse, EtOH Liver Cirrhosis, Chronic anemia, Anxiety and Depression, Former tobacco use, Hx Pancreatitis who presents to the [facility] ED on 09/12/22 with history of generalized abdominal discomfort with bloating, fatigue and epigastric discomfort as well eagerness to completely discontinue alcohol use as he after a year of sobriety started occasionally drinking again reporting currently that his last drink was 5 days prior but interested in complete sobriety at this time. #1. Acute pancreatitis w/ abdominal pain with potential pancreatic pseudocyst: Will admit to [facility], maintain on IVFs, NPO, PPI, IV/po pain control, trend lipase, CMP. Will obtain RUQ US, FLP to be cautious however patient's alcohol abuse history with ongoing alcohol intake is most likely his etiology for his acute pancreatitis presentation. Discussed strongly given his history he needs to be completely sober especially given his cirrhotic disease. #2. Alcohol abuse with ongoing alcohol use: Given that patient has not had any alcohol intake over the last 5 days he would be past alcohol withdrawal symptoms therefore will have as needed agents only, will obtain mag and Phos levels and replete if necessary, request case management consultation for substance abuse to assist him in maintaining sobriety, maintain on multivitamin, thiamine and folic acid. #3. Normocytic anemia, worsened since prior: Admission hemoglobin 9.3, MCV 83, prior hemoglobin noted 04/05/2019 12.9, will obtain iron panel, ferritin as well as guaiac in addition to vitamin B12 and folic acid given alcoholic history to be cautious. If any concerning findings given his alcohol abuse history low threshold to involve gastroenterology while inpatient. #4. Alcoholic cirrhosis: CT abdomen pelvis with cirrhosis with mild splenome timmy consistent with portal hypertension with a 7 cm cystic mass in the uncinate process of the pancreas as noted above, continue treatment as noted number 1, strongly encouraged resumption of his care with gastroenterology at [place] as in the past had been very good about continue routine follow-up but with COVID onset stopped completely. Encouraged complete alcohol sobriety and continue evaluation and intervention as noted #2. #5. Chronic thrombocytopenia: Admission platelets 78, baseline prior was also 78, stable, judicious use of chemoprophylaxis given this, repeat level in AM. #6. Former tobacco use: Encourage continued tobacco cessation. #7. GERD: We will maintain on IV PPI given #1. #8. Hypertension: Patient with noted history, not currently on regimen, BP elevated above goal in the ED, notes has not been on a regimen and a while and its been better controlled, will continue to monitor and if remains above goal we will need to add oral regimen, as needed IV hydralazine interim. #9. DVT prophylaxis: SCDs, defer chemoprophylaxis given notable thrombocytopenia. Charges/Coding Visit Charges Inpatient E&M: 63047 Init Hosp L3
[2022-09-12 19:30] LABS: Ferritin 16 ng/mL (26-388); Iron 29 ug/dL (65-175); Iron Binding Capacity,Total 450 ug/dL (250-450); PERCENT IRON SATURATION 6.4 % (15.0-55.0)
[2022-09-12 20:11] LABS: Amphetamine Urine VISTA NEGATIVE (<1000 ng/mL); Barbiturate Urine VISTA NEGATIVE (< 200 ng/mL); Benzodiazepine Urine VISTA NEGATIVE (< 200 ng/mL); Cocaine Urine VISTA NEGATIVE (< 300 ng/mL); Ecstacy Urine VISTA NEGATIVE (< 500 ng/mL); Methadone Urine VISTA NEGATIVE (< 300 ng/mL); PCP Urine VISTA NEGATIVE (< 25 ng/mL); THC Urine VISTA NEGATIVE (< 50 ng/mL); Vista UDS pH Range 6
[2022-09-12] MEDS: 0.9% Normal Saline 1,000 ML 150 ML IV (20:42)
[2022-09-12] MEDS: 0.9% Saline Lock 10 ML Syringe IV (20:47)
[2022-09-12 21:20] LABS: Vitamin B12 450 pg/mL (211-911)
[2022-09-12] MEDS: Gabapentin 300 MG Capsule PO (22:45)
[2022-09-12] MEDS: Acetaminophen 325 MG Tablet 650 MG PO (22:45)
[2022-09-12] MEDS: traZODone 100 MG Tablet PO (22:45)
[2022-09-13] VITALS (7 sets, daily range): BP systolic 149–164; BP diastolic 86–101; PULSE 79–99; RESP 16–18; TEMP 36.6–37.3; O2SAT 97–100
[2022-09-13] MEDS: Acetaminophen 325 MG Tablet 650 MG PO (02:51)
[2022-09-13] MEDS: hydrOXYzine PAM 25 MG Capsule 50 MG PO (02:51)
[2022-09-13] MEDS: Dicyclomine 10 MG Capsule 20 MG PO (02:51)
[2022-09-13] MEDS: 0.9% Normal Saline 1,000 ML 150 ML IV ×3 (02:51→20:18)
[2022-09-13 04:41] LABS: Absolute Lymphocyte Count 0.61 X10^3/uL (0.83-4.51); Absolute Neutrophil Count 2.3 X10^3/uL (2.0-7.7); Basophil# 0.01 X10^3/uL; Basophil% 0.3 % (0-1); Eosinophil# 0.04 X10^3/uL; Eosinophils% 1.1 % (0-5); Hematocrit 27.7 % (40-54); Hemoglobin 8.1 g/dL (13.0-16.5); Lymphocyte # 0.61 X10^3/ul (0.83-4.51); Lymphocyte % 17.2 % (19-41); Mean Corp Hgb Conc 29.2 g/dL (32-36); Mean Corpuscular Hgb 24.3 pg (27.0-32.0); Mean Corpuscular Volume 83.2 fL (80-94); Monocyte# 0.53 X10^3/uL; Monocyte% 14.9 % (0-10); NRBC Flagged by Analyzer 0.6 % (0-5); Neutrophil # 2.34 X10^3/uL (2.7-7.7); Neutrophil % 65.9 % (47-70); POSITIVE COUNT YES; POSITIVE MORPHOLOGY YES; Platelet Count 67 K/mm3 (150-450); RBC Distribution Width CV 20.3 % (11.6-14.6); RBC Distribution Width SD 59.5 fl (35.1-43.9); Red Blood Count 3.33 M/mm3 (4.6-6.2); White Blood Count 3.6 K/mm3 (4.4-11.0)
[2022-09-13 04:43] LABS: Differential Indicated SCAN CRITERIA MET
[2022-09-13 05:06] LABS: Anisocytosis 2+; Platelet Estimate MOD DEC (ADEQ)
[2022-09-13 05:08] LABS: ALB/GLOB Ratio 0.6 RATIO (0.9-2.4); AST(SGOT) 42 U/L (15-37); Alanine Aminotransfer ALT/SGPT 32 U/L (16-61); Albumin, Serum 2.9 g/dL (3.2-5.0); Alkaline Phosphatase 87 U/L (45-117); Anion Gap 8 (5-15); BUN 13 mg/dL (7-18); BUN/Creat Ratio 11.3 RATIO (10-20); Calcium,Total 8.4 mg/dL (8.5-10.1); Chloride 105 mmol/L (98-107); Cholesterol 129 mg/dL (200); Creatinine, Serum 1.15 mg/dL (0.70-1.30); EST Glomerular Filtration Rate 71 mL/min (>60); Est Glom Filt Rate - Afr Amer 86 mL/min (>60); Estimated Creatinine Clearance 80.03 ml/min; Globulin 4.5 g/dL (2.2-4.2); Glucose 108 mg/dL (74-106); High Density Lipoprotein 54 mg/dL; Lipase 378 U/L (73-393); Protein, Total 7.4 g/dL (6.4-8.2); Sodium Level 136 mmol/L (136-145); Triglycerides 96 mg/dL; Very Low Density Lipoprotein 19 mg/dL (5-40)
--- NOTE | 2022-09-13 05:55 | US_ITS ---
STUDY: ABDOMINAL ULTRASOUND - RIGHT UPPER QUADRANT REASON FOR VISIT: Male, 52 years old Pancreatitis TECHNIQUE: Ultrasound evaluation of the right upper quadrant was performed with real-time and static pineda-scale imaging. TECHNICAL QUALITY: Adequate. COMPARISON: Comparison is made with prior study dated 09/12/2022. FINDINGS: Liver: The liver is enlarged and measures 23.6 cm. There is increased echogenicity consistent with fatty infiltration. The bile ducts are within normal limits. There is hepatic color flow. The direction of portal flow is hepatopetal. There is no demonstrated mass lesion. Gallbladder: Normal distended gallbladder. The gallbladder wall measures 2.3 mm. There is a negative sonographic Flores''s sign. There is no pericholecystic fluid. There are no gallstones. Common Bile Duct (C.B.D.): The common bile duct measures 3.8 mm. Pancreas: There is evidence of a 7.8 cm x 7.55 x 6.4 cm cyst within the body of the pancreas. There is normal echogenicity of the pancreas. Right Kidney: Normal size of the right kidney. The right kidney measures 12.2 cm x 5.6 x 6.1 cm. Normal renal cortex. The right cortex measures 1.8 cm. There is no demonstrated renal mass or cyst. There is no right hydronephrosis. US/Gallbladder IMPRESSION: Hepatomegaly and diffuse fatty infiltration of the liver. 7.8 cm x 7.5 cm x 6.4 cm cyst in the body of the pancreas. Electronically Signed: Dov Garrison MD at 10:10 EST ,
[2022-09-13] MEDS: Folic Acid 1 MG Tablet PO (08:43)
[2022-09-13] MEDS: Thiamine Hydrochloride 100 MG Tablet PO (08:43)
[2022-09-13] MEDS: Morphine 4 MG/ML Syringe IV ×3 (09:41→20:18)
--- NOTE | 2022-09-13 11:20 | CASEMGMT ---
JOHN SHETH Assessment: Face to Face with pt for initial transition planning/care coordination assessment. RN MERYL introduced self and role at [facility], pt voices understanding and consents to assessment. Pt is A/O x4 and answers all questions appropriately at this time. Pt lying in bed in no distress. Care providers, pharmacy, and demographics verified/updated. Admitting Dx: acute pancreatitis, ETOH w/d, anemia PCP:Anthony Specialists:GI in [place] Preferred Pharmacy: [facility] Insurance: [facility] Prescription Benefit: yes LNOK: Natalie Colin, ; Jose A Colin, father Living Arrangements: Pt lives with and 3 kids in a two story house with 1 step to enter. Pt reports he is I in ADL's and denies concerns at home. Transportation: Pt drives self and denies concerns with transportation. DME/HHC/SNF: Pt denies having any DME in the home, previous HHC or SNF stays. Pt states no concerns with going home at time of dc. Pt states he just stopped drinking alcohol 5 days ago. He had previously stopped and started back up. Pt states he knows now he cannot even socially drink. Pt is interested in resources, updated SW. Pt states no further concerns/needs. CM to follow. Advised pt to ask CM if any further question/concerns/needs arise, voices understanding. Pt Goal: Home Plan: Home
[2022-09-13] MEDS: oxyCODONE 5 MG Tablet 10 MG PO ×2 (11:30→17:37)
--- NOTE | 2022-09-13 11:42 | CASEMGMT ---
Social Work Consult: Substance abuse resources Referral source: RN CM This social media director met with patient in room. Introduced self and social media director role. Patient agreeable to speak with this social media director. This social media director noting that per RN CM that patient is interested in substance abuse resources. Patient states i will take a name and number, but I probably won't need it. This social media director attempted to speak further with patient, patient not wishing to continue conversation. Patient open to this social media director providing patient with substance abuse resources packet. Mary TINOCO, ANTHONY-S
--- NOTE | 2022-09-13 15:33 | PCM.PN.HOSP ---
Subjective Subjective Patient was seen and examined today, he still is complaining of some generalized abdominal pain. Patient's repeat lipase this morning was 378. I have elected to place him on a full liquid diet at this time. Patient is anemic and his last iron level was low, I placed him on Venofer. Objective Data Objective Data Vital Signs: Vital Signs Temp Pulse Resp BP Pulse Ox O2 Del Method 98.0 F 99 18 164/98 H 100 Room Air 09/13/22 14:30 09/13/22 14:30 09/13/22 14:30 09/13/22 14:30 09/13/22 14:30 09/13/22 14:30 Oxygen Delivery Method Room Air Weight: 92.3 kg Body Mass Index (BMI) 28.3 Intake & Output: Intake and Output for Last 24 Hours 09/11/22 09/12/22 09/13/22 23:59 23:59 23:59 Intake Total 110 / 110 2032.5 / 2032.5 Output Total 0 / 0 Balance 110 / 110 2032.5 / 2031.5 Lab / Micro Data Result Diagrams: 09/13/22 04:15 09/13/22 04:15 Labs: Laboratory Results - last 24 hr 09/12/22 11:40: Phosphorus 3.0, Magnesium 2.0, Iron 29 L, TIBC 450, Iron Saturation 6.4 L, Ferritin 16 L, Folate 9.00 09/12/22 18:43: Urine Opiates Screen NEGATIVE, Urine Methadone Screen NEGATIVE, Ur Barbiturates Screen NEGATIVE, Ur Phencyclidine Scrn NEGATIVE, Ur Amphetamines Screen NEGATIVE, MDMA (Ecstasy) Screen NEGATIVE, U Benzodiazepines Scrn NEGATIVE, Urine Cocaine Screen NEGATIVE, U Cannabinoids Screen NEGATIVE, Ur Drug Screen Comment 09/12/22 19:33: Ethyl Alcohol 4.0 09/12/22 19:33: Vitamin B12 450 09/13/22 04:15: WBC 3.6 L, RBC 3.33 L, Hgb 8.1 L, Hct 27.7 L, MCV 83.2, MCH 24.3 L, MCHC 29.2 L, RDW Std Deviation 59.5 H, RDW Coeff of Sherin 20.3 H, Plt Count 67 L, Immature Gran % (Auto) 0.600, Neut % (Auto) 65.9, Lymph % (Auto) 17.2 L, Alexander % (Auto) 14.9 H, Eos % (Auto) 1.1, Baso % (Auto) 0.3, Absolute Neuts (auto) 2.3, Absolute Lymphs (auto) 0.61 L, Nucleated RBC % 0.6, Platelet Estimate MOD DEC, Anisocytosis 2+ 09/13/22 04:15: Sodium 136, Potassium 4.0, Chloride 105, Carbon Dioxide 23.0, Anion Gap 8, BUN 13, Creatinine 1.15, Estim Creat Clear Calc 80.03, Est GFR (MDRD) Af Amer 86, Est GFR (MDRD) Non-Af 71, BUN/Creatinine Ratio 11.3, Glucose 108 H, Calcium 8.4 L, Total Bilirubin 1.00, AST 42 H, ALT 32, Alkaline Phosphatase 87, Total Protein 7.4, Albumin 2.9 L, Globulin 4.5 H, Albumin/Globulin Ratio 0.6 L, Triglycerides 96, Cholesterol 129, LDL Cholesterol 56, VLDL Cholesterol 19, HDL Cholesterol 54, Lipase 378 Radiography Diagnostic Testing: Radiology Impression Abdomen/Pelvis CT 09/12/22 13:31 IMPRESSION: 1. Cirrhosis with mild splenomegaly consistent with portal hypertension. 2. 7 cm cystic mass in the uncinate process of the pancreas consistent with a pancreatic pseudocyst, abscess, or cyst. Electronically Signed: Jerson Prasad MD at 16:55 EST , Gallbladder Ultrasound 09/13/22 05:55 IMPRESSION: Hepatomegaly and diffuse fatty infiltration of the liver. 7.8 cm x 7.5 cm x 6.4 cm cyst in the body of the pancreas. Electronically Signed: Dov Garrison MD at 10:10 EST , Physical Exam Const alert, oriented x3 and no apparent distress Constitutional Narrative: Patient appears his stated age General Appearance: cooperative, well kempt and well developed Orientation / Consciousness: awake, oriented to person, oriented to place and oriented to time HEENT normocephalic, head/scalp atraumatic and moist oral mucous membranes Eyes PERRL, EOMs intact bilaterally and conjunctivae normal Neck supple, no JVD, thyroid normal and no carotid bruits General: trachea midline Resp normal respiratory effort, no retractions, no use of accessory muscles and clear to auscultation bilaterally Auscultation: Negative for rales, rhonchi or wheezes Cardio regular rate, regular rhythm, S1 normal heart sound, S2 normal heart sound, no murmurs, no rub and no gallops GI normal to inspection, nondistended, normoactive bowel sounds, soft to palpation and non-distended GI Narrative: Generalized abdominal tenderness is noted to palpation which is mild, no rebound abdominal tenderness was noted Extremity normal to inspection and no clubbing, cyanosis or edema Skin no rashes or lesions noted General Skin Exam: no breakdown Neuro oriented x3, CN's II-XII intact bilaterally, moves all extremities, no focal motor deficits and no sensory deficits noted Sensorium / Orientation: awake and alert Speech: speech normal Psych affect normal Assessment & Plan Assessment/Plan (1) Acute pancreatitis: PLAN: Plan 1. 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
[2022-09-13] MEDS: traZODone 100 MG Tablet PO (21:14)
[2022-09-14] MEDS: oxyCODONE 5 MG Tablet 10 MG PO ×3 (00:47→14:13)
[2022-09-14 02:30] VITALS: BP 137/85; PULSE 98; RESP 16; TEMP 36.9; O2SAT 95
[2022-09-14] MEDS: 0.9% Normal Saline 1,000 ML 150 ML IV ×2 (03:15→09:42)
[2022-09-14] MEDS: Morphine 4 MG/ML Syringe IV (03:18)
[2022-09-14 07:31] LABS: Absolute Lymphocyte Count 0.69 X10^3/uL (0.83-4.51); Absolute Neutrophil Count 2.1 X10^3/uL (2.0-7.7); Basophil# 0.02 X10^3/uL; Basophil% 0.6 % (0-1); Eosinophil# 0.03 X10^3/uL; Eosinophils% 0.9 % (0-5); Hematocrit 27.6 % (40-54); Hemoglobin 8.2 g/dL (13.0-16.5); Lymphocyte # 0.69 X10^3/ul (0.83-4.51); Lymphocyte % 20.2 % (19-41); Mean Corp Hgb Conc 29.7 g/dL (32-36); Mean Corpuscular Hgb 25.1 pg (27.0-32.0); Mean Corpuscular Volume 84.4 fL (80-94); Mean Platelet Vol. 11.6 fl (6.2-12.0); Monocyte# 0.58 X10^3/uL; NRBC Flagged by Analyzer 0 % (0-5); Neutrophil # 2.07 X10^3/uL (2.7-7.7); Neutrophil % 60.7 % (47-70); POSITIVE COUNT YES; POSITIVE MORPHOLOGY YES; Platelet Count 82 K/mm3 (150-450); RBC Distribution Width CV 20.2 % (11.6-14.6); RBC Distribution Width SD 60.1 fl (35.1-43.9); Red Blood Count 3.27 M/mm3 (4.6-6.2); White Blood Count 3.4 K/mm3 (4.4-11.0)
[2022-09-14 07:35] VITALS: O2SAT 95
[2022-09-14 07:36] LABS: Differential Indicated SCAN CRITERIA MET
[2022-09-14 08:41] LABS: Platelet Estimate MOD DEC (ADEQ)
[2022-09-14 08:42] LABS: Anisocytosis 2+; Hypochromasia 1+; Microcytosis 1+; Poikilocytosis 1+; Polychromasia RARE; Stomatocyte RARE
[2022-09-14 09:36] VITALS: BP 144/93; PULSE 96; RESP 18; TEMP 36.6; O2SAT 96
[2022-09-14] MEDS: Morphine 2 MG/ML Syringe IV (09:42)
[2022-09-14] MEDS: Folic Acid 1 MG Tablet PO (09:43)
[2022-09-14] MEDS: Thiamine Hydrochloride 100 MG Tablet PO (09:43)
--- NOTE | 2022-09-14 11:13 | DCINST_ITS ---
Discharge Instructions Diet Discharge Diet: No restrictions Activity Discharge Activity: Return to Normal Activity Weight Bearing Status: Full weight bearing Follow Up Care Test Results: Test results from this visit will be discussed in further detail at your follow- up appointment, if applicable. Discharge Plan Admission Admit Date/Time: 09/12/22 18:49 Primary Reason for Your Visit: pancreatitis Attending Provider: Juma Pablo Primary Care Provider: Temo Cruz Consulting Providers: Margarita Addison Instructions Additional Instructions / Restrictions: Do not drink alcohol Discharge Orders/Prescriptions Prescriptions: New ferrous sulfate 325 mg (65 mg iron) tablet 325 mg PO BID Qty: 60 0RF hydrocodone-acetaminophen 5-325 mg tablet 1 tab PO Q6H PRN (Reason: pain) 7 Days Qty: 15 0RF Referrals / Follow Up: Temo Cruz MD [Primary Care Provider] - Within 2 Weeks (you will need follow up concerning your anemia) Disposition Disposition (needs filled in before D/C Order can be placed): Home, Self Care
--- NOTE | 2022-09-14 11:21 | PCM.DC.SUM ---
Providers Date of Admission: 09/12/22 Date of Discharge: 09/14/22 Primary Care Physician: Dr. Temo Cruz MD Reason For Visit: ACUTE PANCREATITIS, EtOH WITHDRAWL, ANEMIA Diagnosis Discharge Diagnosis (1) Acute pancreatitis: Status: Acute Code(s): K85.90 - Acute pancreatitis without necrosis or infection, unspecified Plan 1. Acute recurrent alcoholic pancreatitis-patient will continue on IV fluids, I have advanced his diet to full liquid diet #2 iron deficiency anemia-patient will receive IV iron #3 cirrhosis secondary to alcoholism-complicates care, management, recovery, and prognosis #4 pancreatic pseudocyst, patient has been cautioned against using alcohol Medications at Discharge Home Medications ferrous sulfate 325 mg (65 mg iron) tablet 325 mg PO BID #60 tabs 09/14/22 hydrocodone-acetaminophen 5-325mg 5mg-325mg 1 tab PO Q6H PRN pain 7 days #15 tabs 09/14/22 Hospital Course Operations None Procedures None Summary of Care Provided Minutes Spent on Discharge: 31 Hospital Course: This 52-year-old white male was seen in the emergency room with complaints of generalized abdominal pain, bloating, and epigastric pain. Work-up in the emergency room included labs which showed an elevated lipase, hemoglobin was 9.3, AST was elevated at 48. CT of the abdomen and pelvis was obtained which showed liver cirrhosis with mild splenomegaly consistent with portal hypertension and a 7 cm cystic mass in the uncinate process of the pancreas consistent with a pancreatic pseudocyst. Patient was admitted to [place] [id number] for acute recurrent pancreatitis, patient admitted to ongoing alcohol intake at home and this was felt to have triggered the pancreatitis. Patient's serum iron level was low and he was given IV Venna for during his hospitalization, IV fluids, and IV pain meds. Patient improved during his hospital stay. On 09/14/2022, patient was seen and examined: On examination he appeared in good health and spirits. Vital signs as documented. Skin warm and dry and without overt rashes. Neck without JVD, neck was supple, trachea midline, thyroid was normal. Lungs clear bilaterally, normal air movement was noted. Heart exam notable for regular rhythm, normal sounds and absence of murmurs, rubs or gallops. Abdomen unremarkable and without evidence of organomegaly, masses, or abdominal aortic enlargement. Bowel sounds are present, abdomen is not distended. Extremities nonedematous, no cyanosis was noted, no clubbing was noted. Neuro: Cranial nerves II through XII are grossly intact, no focal motor deficits were noted, sensation to light touch and pinprick intact, motor exam 5/5 throughout. Psych: Patient is alert and oriented x3, he does not appear anxious or depressed, he does not appear agitated. Patient appears stable for discharge on 09/14/2022, he was instructed to follow-up with his PCP concerning his anemia and he was cautioned against using any alcohol whatsoever. Weight / BMI Weight Weight: 92.3 kg Body Mass Index (BMI) 28.3 ABG / Lab / Microbiology Data Result Diagrams: 09/14/22 06:49 09/13/22 04:15 Laboratory: Laboratory Results - last 24 hr 09/14/22 06:49: WBC 3.4 L, RBC 3.27 L, Hgb 8.2 L, Hct 27.6 L, MCV 84.4, MCH 25.1 L, MCHC 29.7 L, RDW Std Deviation 60.1 H, RDW Coeff of Sherin 20.2 H, Plt Count 82 L, MPV 11.6, Immature Gran % (Auto) 0.600, Neut % (Auto) 60.7, Lymph % (Auto) 20.2, [place] % (Auto) 17.0 H, Eos % (Auto) 0.9, Baso % (Auto) 0.6, Absolute Neuts (auto) 2.1, Absolute Lymphs (auto) 0.69 L, Nucleated RBC % 0, Platelet Estimate MOD DEC, Polychromasia RARE, Hypochromasia 1+, Poikilocytosis 1+, Anisocytosis 2+, Microcytosis 1+, Stomatocytes RARE D/C Instructions Discharge Diet: No restrictions Weight Bearing Status: Full weight bearing Meaningful Use Info Meaningful Use Diagnoses (Choose all that apply): None applicable Discharge Plan Admission Admit Date/Time: 09/12/22 18:49 Primary Reason for Your Visit: pancreatitis Attending Provider: Juma Pablo Primary Care Provider: Temo Cruz Consulting Providers: Margarita Addison Instructions Additional Instructions / Restrictions: Do not drink alcohol Discharge Orders/Prescriptions Prescriptions: New ferrous sulfate 325 mg (65 mg iron) tablet 325 mg PO BID Qty: 60 0RF hydrocodone-acetaminophen 5-325 mg tablet 1 tab PO Q6H PRN (Reason: pain) 7 Days Qty: 15 0RF Referrals / Follow Up: Temo Cruz MD [Primary Care Provider] - Within 2 Weeks (you will need follow up concerning your anemia) Disposition Disposition (needs filled in before D/C Order can be placed): Home, Self Care Charges/Coding Visit Charges Inpatient E&M: 61265 Disch Hosp
[2022-09-14 12:00] VITALS: BP 144/93; PULSE 96; RESP 18; TEMP 36.6; O2SAT 96
[2022-09-14 14:15] VITALS: BP 157/94; PULSE 94; RESP 18; TEMP 36.6; O2SAT 97
== END 2022-09-14 14:25 | disposition home or self-care (01) | DRG 439 ==
LOC: ED 18:39 → MS3 19:23
PROVIDERS: Admitting Provider Family Medicine; Emergency Provider Emergency Medicine; PCP Family Medicine; Visit Provider Internal Medicine
DX: K85.90 Acute pancreatitis without necrosis or infection, unspecified (principal); K76.6 Portal hypertension; K70.30 Alcoholic cirrhosis of liver without ascites; D69.6 Thrombocytopenia, unspecified; K86.3 Pseudocyst of pancreas; F10.10 Alcohol abuse, uncomplicated; D50.9 Iron deficiency anemia, unspecified; F32.A Depression, unspecified; K21.9 Gastro-esophageal reflux disease without esophagitis; Z87.891 Personal history of nicotine dependence; K85.20 Alcohol induced acute pancreatitis without necrosis or infection; Y90.9 Presence of alcohol in blood, level not specified; F41.9 Anxiety disorder, unspecified
CPT/HCPCS: 36415; 74177; 76705; 80048; 80053; 80061; 80076; 80307; 81001; 82077; 82607; 82728; 82746; 83540; 83550; 83690; 83735; 84100; 85025; 85652; 96361; 96365; 96366; 96367; 96375; 96376; 97802; 99221; 99283; J7030; J7050; Q9967; A4216; G0378; J2916

== ENCOUNTER 2024-03-25 12:59 | Emergency (ER) | payer OTHER, SELFPAY ==
[2024-03-25 12:59] VITALS: BP 130/108; PULSE 123; RESP 19; TEMP 36.8; O2SAT 95; BMI 28.3
== END 2024-03-25 13:04 | disposition left against medical advice (07) ==
LOC: ED 13:09
PROVIDERS: PCP Family Medicine
DX: Z53.21 Procedure and treatment not carried out due to patient leaving prior to being seen by health care provider (principal)

== ENCOUNTER 2024-03-26 08:54 | Emergency (ER) | payer OTHER, SELFPAY ==
[2024-03-26 08:54] VITALS: BP 150/108; BP 152/123; PULSE 121; PULSE 122; RESP 16; RESP 20; TEMP 36.8; O2SAT 95; BMI 27.9
--- NOTE | 2024-03-26 10:02 | CT_ITS ---
STUDY: CT BRAIN WITHOUT CONTRAST REASON FOR EXAM: Male, 54 years old. Head injury. RADIATION DOSAGE (If Supplied By Facility): CTDIvol = ( 44.99 ) mGy, DLP = ( 880.47 ) mGycm TECHNIQUE: Transaxial CT imaging of the brain was performed without administration of intravenous contrast material. Individualized dose optimization techniques were used for this CT. COMPARISON: No relevant priors. FINDINGS: Normal soft tissue structures. Normal calvarium. There is mild cerebral atrophy with widening of the extra-axial spaces and ventricular dilatation. Normal white matter tracts of the cerebral hemispheres. A 5.8 mm lacuna is seen in the insular cortex of the left temporal lobe. Age of which cannot be determined at this time. Normal brainstem. Normal cerebellum. There is no intracranial hemorrhage. There are no findings of an acute ischemic infarction. Atherosclerotic calcification of the cavernous portions of the internal carotid arteries bilaterally. Normal visualized paranasal sinuses. CT/Brain/Head without Contrast IMPRESSION: Chronic involutional changes of the brain. Findings suggestive of old lacunar infarct in the insular cortex of the left temporal lobe. Electronically Signed: Dov Garrison MD at 10:23 EDT ,
--- NOTE | 2024-03-26 10:26 | EDS_ITS ---
HPI History of Present Illness Chief Complaint: Head Injury Informant: patient Narrative Narrative: 54-year-old male presenting to the emergency room with a chief complaint of head injury. Patient states that he had concussions playing football growing up but has been without concussion for years. About 3 weeks ago he was working from home when he leaned back in his chair and tipped over striking the left occiput and periauricular area on a countertop. No loss of consciousness. Patient did sustain a laceration to his posterior ear but he cleaned it up and allowed it to heal by secondary intention. He is presenting today with continued what he describes as heaviness in his head and nausea. He states that he had some off- balance feeling for couple weeks which has improved. He states he is currently not treated for any medical problems and currently takes no medications. He has not seen primary care for several years. [facility] Medical History Chronic anemia Former tobacco use GERD (gastroesophageal reflux disease) Hypertension ALC (alcoholic liver cirrhosis) Thrombocytopenia Alcoholism Home Medications ?Medication ?Instructions ?Recorded ?Last Taken ?Type Nugenix 3 tab PO DAILY 03/26/24 03/26/24 History ondansetron 4 mg disintegrating 4 mg PO Q6H PRN PRN Nausea #15 tabs 03/26/24 Unknown Rx tablet Allergy/AdvReac Type Severity Reaction Status Date / Time No Known Allergies Allergy Verified 03/26/24 08:55 Surgical History No history of previous surgery Social History household members: spouse and children Smoking Status: Former smoker how long ago did patient quit smoking: Quit 7 yrs prior, smoked light while drinking only. alcohol intake: current alcohol intake frequency: a few times a week Alcohol type: hard liquor details: Prior heavy, down to 2-3 oz vodka x 2-3 2-3x/week. substance use type: does not use ROS ROS ED Constitutional Constitutional ED: Denies chills, fever(s) or weight loss Eyes Eyes: Denies change in vision or diplopia ENT ENT ED: Denies ear pain, rhinorrhea or sore throat Cardiovascular Cardiovascular: Denies chest pain, orthopnea, palpitations or racing heartbeat Respiratory/Chest Respiratory/Chest: Denies cough, dyspnea or orthopnea Gastrointestinal Gastrointestinal: Reports nausea; Denies abdominal pain, diarrhea or vomiting Genitourinary Genitourinary ED: Denies dysuria, hematuria or urinary frequency Musculoskeletal Musculoskeletal: Denies arthralgias, myalgias or neck pain Integumentary Reports other Details: left ear laceration ; Denies abscess or rash Neurologic Neurologic: Reports headache(s); Denies weakness Psychiatric Psychiatric: Denies anxiety, depression, suicidal ideation or suicidal thoughts Endocrine Endocrinology: Denies polydipsia, polyphagia or polyuria Allergic/Immunologic Allergic/Immunologic ED: Denies mouth swelling, tongue swelling or urticaria EXAM Physical Exam Const Vital Signs: 03/26/24 08:54 03/26/24 08:54 03/26/24 08:54 Temperature 98.2 F Temperature Source Temporal Pulse Rate 121 H 122 H Respiratory Rate 16 20 H Respiratory Effort Normal Respiratory Depth Normal Respiratory Pattern Normal Blood Pressure 152/123 H 150/108 H Blood Pressure Mean 132 122 Pulse Ox 95 95 Oxygen Delivery Method Room Air Room Air Room Air Positive well nourished and well developed General Appearance ED: well developed HEENT Reports normocephalic, head/scalp atraumatic and moist mucous membranes Eyes PERRL and EOMs intact bilaterally Neck no lymphadenopathy, supple and no JVD Resp normal respiratory effort and clear to auscultation bilaterally Cardio regular rate, regular rhythm and no murmurs GI normal to inspection, nondistended, normoactive bowel sounds and non-tender Palpation: soft Back/Spine no CVA tenderness and normal ROM Extremity normal to inspection General Extremety ED: Negative for edema General Extremity: Negative for edema Neuro oriented x3 and CN's II-XII intact bilaterally Sensorium / Orientation: alert Sensory Exam: No sensory level loss detected Motor Exam: strength 5/5 throughout Psych mental status grossly normal Mood & Affect: Negative for depressed or tearful Skin no rashes or lesions noted and no wounds MDM MDM MDM Narrative Medical decision making narrative: Differential diagnosis includes but not limited to concussion intracranial hemorrhage/hematoma stroke skull fracture. CT of the brain was obtained which is negative for acute findings. There is the suggestion of an old lacunar infarct. Patient remained tachycardic greater than 100. I discussed this with the patient. Obtained an EKG which shows a sinus rhythm at a rate of 94. Patient is pancytopenic with a white count of 2.5 hemoglobin 12.2 and a platelet count of 35. He does have a history of alcoholic hepatitis in the past. I wonder to what degree this is playing a factor in it today. His liver enzymes today showed a total bilirubin of 1.3 AST of 155 ALT of 48 and alk phos of 166 troponin is 10. Glucose 114. Potassium 3.4 and sodium of 139. Patient's had no dysrhythmias on the monitor. He ranges from the mid 90s to 100. At this point I think the patient can be discharged home. Advised the patient I would recommend reestablishing with primary care to review his pancytopenia and his liver. Sources concussive symptoms about 3 weeks out. This is somewhat longer than expected. I advised him that if it continues past 1 or 2 more weeks that he should possibly follow-up with concussion clinic. Again this can be discussed with primary care. Patient has not taken much time off of work. He still using his computer very frequently. Advised him that this weekend and today he should rest plenty and avoid screen time. He should avoid strenuous exercise. I will write for some Zofran for nausea. History & Record Review Discussion w/independent historian: Patient and Significant other Lab Data Attestation: I reviewed the patient's lab results. Labs: Laboratory Results - last 24 hr 03/26/24 10:55 WBC 2.5 L RBC 3.72 L Hgb 12.2 L Hct 36.2 L MCV 97.3 H MCH 32.8 H MCHC 33.7 RDW Std Deviation 51.4 H RDW Coeff of Sherin 14.4 Plt Count 35 L* MPV 10.8 Immature Gran % (Auto) 0.400 Neut % (Auto) 59.9 Lymph % (Auto) 28.6 [place] % (Auto) 9.9 Eos % (Auto) 0.8 Baso % (Auto) 0.4 Absolute Neuts (auto) 1.5 L Absolute Lymphs (auto) 0.72 L Nucleated RBC % 0 Diff Path Review May foll Platelet Estimate MKD DEC Sodium 139 Potassium 3.4 L Chloride 103 Carbon Dioxide 24.0 Anion Gap 12 BUN 7 Creatinine 0.79 Estim Creat Clear Calc 123.35 Est GFR (MDRD) Af Amer 131 Est GFR (MDRD) Non-Af 108 BUN/Creatinine Ratio 8.8 L Glucose 114 H Calcium 9.1 Total Bilirubin 1.30 H AST 155 H ALT 48 Alkaline Phosphatase 166 H Troponin I High Sens 10 Total Protein 7.8 Albumin 3.3 Globulin 4.5 H Albumin/Globulin Ratio 0.7 L Radiography Diagnostic Testing: Clinical Impression(s) from Imaging Studies Brain CT 03/26/24 10:02 IMPRESSION: Chronic involutional changes of the brain. Findings suggestive of old lacunar infarct in the insular cortex of the left temporal lobe. Electronically Signed: Dov Garrison MD at 10:23 EDT , EKG Initial EKG: Attestation: I personally reviewed and interpreted this EKG as follows: Comments: Normal sinus rhythm ventricular rate of 93 bpm Discharge Plan Triage Chief Complaint: Head Injury ED Provider: Ned Salinas Dx/Rx/DC Orders Clinical Impression: Pancytopenia, Concussion, Post concussion syndrome Instructions: ED Concussion Prescriptions: New ondansetron 4 mg tablet,disintegrating 4 mg PO Q6H PRN PRN (Reason: Nausea) Qty: 15 0RF No Action Nugenix tablet 3 tab PO DAILY Patient Comments: TABLET INCLUDES VITAMIN A,C,D,E,B-6, B-12, BIOTIN, THIAMIN, TESTOSTERONE, FOLATE, NIACIN, CALCIUM, MAGNESIUM, ZINC, ETC. Primary Care Provider: Temo Cruz Referrals: Temo Cruz MD [Primary Care Provider] - 1-2 Weeks Print Language: Latvian Disposition Disposition: Home, Self Care
--- NOTE | 2024-03-26 10:40 | EKG12_ITS ---
Test Reason : HEAD INJURY Blood Pressure : / mmHG Vent. Rate : 093 BPM Atrial Rate : 093 BPM P-R Int : 154 ms QRS Dur : 080 ms QT Int : 378 ms P-R-T Axes : 050 023 045 degrees QTc Int : 469 ms Normal sinus rhythm Normal ECG Confirmed by AWA RAMOS, PERLA ([id number]), script editor USKHJINDER NAVA ([id number]) on 03/29/2024 9:43:19 AM Referred By: Confirmed By:LILO BILLINGS MD
[2024-03-26 11:04] LABS: Absolute Lymphocyte Count 0.72 X10^3/uL (0.83-4.51); Absolute Neutrophil Count 1.5 X10^3/uL (2.0-7.7); Basophil# 0.01 X10^3/uL; Basophil% 0.4 % (0-1); Eosinophil# 0.02 X10^3/uL; Eosinophils% 0.8 % (0-5); Hematocrit 36.2 % (40-54); Hemoglobin 12.2 g/dL (13.0-16.5); Lymphocyte # 0.72 X10^3/ul (0.83-4.51); Lymphocyte % 28.6 % (19-41); Mean Corp Hgb Conc 33.7 g/dL (32-36); Mean Corpuscular Hgb 32.8 pg (27.0-32.0); Mean Corpuscular Volume 97.3 fL (80-94); Mean Platelet Vol. 10.8 fl (6.2-12.0); Monocyte# 0.25 X10^3/uL; Monocyte% 9.9 % (0-10); NRBC Flagged by Analyzer 0 % (0-5); Neutrophil # 1.51 X10^3/uL (2.7-7.7); Neutrophil % 59.9 % (47-70); POSITIVE COUNT YES; RBC Distribution Width CV 14.4 % (11.6-14.6); RBC Distribution Width SD 51.4 fl (35.1-43.9); Red Blood Count 3.72 M/mm3 (4.6-6.2); White Blood Count 2.5 K/mm3 (4.4-11.0)
[2024-03-26 11:09] LABS: Differential Indicated SCAN CRITERIA MET; Platelet Count 35 K/mm3 (150-450)
[2024-03-26 11:36] LABS: ALB/GLOB Ratio 0.7 RATIO (0.9-2.4); AST(SGOT) 155 U/L (15-37); Alanine Aminotransfer ALT/SGPT 48 U/L (16-61); Albumin, Serum 3.3 g/dL (3.2-5.0); Alkaline Phosphatase 166 U/L (45-117); Anion Gap 12 (5-15); BUN 7 mg/dL (7-18); BUN/Creat Ratio 8.8 RATIO (10-20); Calcium,Total 9.1 mg/dL (8.5-10.1); Chloride 103 mmol/L (98-107); Creatinine, Serum 0.79 mg/dL (0.70-1.30); EST Glomerular Filtration Rate 108 mL/min (>60); Est Glom Filt Rate - Afr Amer 131 mL/min (>60); Estimated Creatinine Clearance 123.35 ml/min; Globulin 4.5 g/dL (2.2-4.2); Glucose 114 mg/dL (74-106); Potassium 3.4 mmol/L (3.5-5.1); Protein, Total 7.8 g/dL (6.4-8.2); Sodium Level 139 mmol/L (136-145); Troponin-I HS 10 pg/mL (3.0-78.0)
[2024-03-26 11:37] LABS: Platelet Estimate MKD DEC (ADEQ)
[2024-03-26 12:16] VITALS: BP 154/61; PULSE 64; RESP 18; TEMP 36.4; O2SAT 99
[2024-03-29 16:18] LABS: Pathologist Review Reviewed
== END 2024-03-26 12:17 | disposition home or self-care (01) ==
PROVIDERS: Emergency Provider Emergency Medicine; PCP Family Medicine; Visit Provider Emergency Medicine
DX: D61.818 Other pancytopenia (principal); S06.0X0A Concussion without loss of consciousness, initial encounter; Z87.891 Personal history of nicotine dependence; X58.XXXA Exposure to other specified factors, initial encounter
CPT/HCPCS: 70450; 80053; 84484; 85025; 93005; 99285; A4216

== ENCOUNTER 2024-04-27 12:44 | Inpatient (IN) | payer OTHER, SELFPAY ==
[2024-04-27] VITALS (8 sets, daily range): BP systolic 123–151; BP diastolic 80–101; PULSE 83–118; RESP 16–39; TEMP 36.2–37; O2SAT 92–99; BMI 12.9; BMI 28.4
--- NOTE | 2024-04-27 12:55 | EDS_ITS ---
HPI History of Present Illness Chief Complaint: ETOH Intox Informant: patient and friend Onset/Context/Timing Onset: Today Context: Gradual Onset Timing: Continuous Quality: Anxious Location: Generalized Associated Symptoms Associated Symptoms: Positive for vomiting*; Negative for diarrhea*, seizure or tremor Narrative Narrative: Patient presents with alcohol intoxication. Patient was found to have multiple empty bottles of vodka in his home. Friend states the patient drinks half bottle of hard liquor per day. Patient states his last drink was this morning. Friends reports that the patient has been having some vomiting and dry heaves. Friends reported that the patient did have a fall and hit his head approximately 1 month ago. Patient was seen here at that time. Patient was discharged at that time. Friends report that the patient's is not at home and his drinking has increased over the past couple days. [facility] Medical History Chronic anemia Former tobacco use GERD (gastroesophageal reflux disease) Hypertension ALC (alcoholic liver cirrhosis) Thrombocytopenia Alcoholism Home Medications ?Medication ?Instructions ?Recorded ?Last Taken ?Type Nugenix 3 tab PO DAILY 03/26/24 03/26/24 History ondansetron 4 mg disintegrating 4 mg PO Q6H PRN PRN Nausea #15 tabs 03/26/24 Unknown Rx tablet Allergy/AdvReac Type Severity Reaction Status Date / Time No Known Allergies Allergy Verified 04/27/24 12:44 Surgical History No history of previous surgery Social History household members: spouse and children Smoking Status: Former smoker how long ago did patient quit smoking: Quit 7 yrs prior, smoked light while drinking only. alcohol intake: current alcohol intake frequency: a few times a week Alcohol type: hard liquor details: Prior heavy, down to 2-3 oz vodka x 2-3 2-3x/week. substance use type: does not use ROS ROS ED Constitutional Constitutional ED: Denies chills or fever(s) Cardiovascular Cardiovascular: Reports chest pain, palpitations and racing heartbeat Gastrointestinal Gastrointestinal: Reports nausea and vomiting Neurologic Neurologic: Reports headache(s) EXAM Physical Exam Const Vital Signs: 04/27/24 12:45 04/27/24 13:22 04/27/24 14:00 Temperature 98.2 F Temperature Source Temporal Pulse Rate 118 H 106 H 93 Respiratory Rate 18 39 H 18 Blood Pressure 151/101 H 140/97 H 133/87 H Blood Pressure Mean 117 111 102 Pulse Ox 93 97 Oxygen Delivery Method Room Air 04/27/24 15:00 04/27/24 16:00 04/27/24 17:00 Temperature 97.2 F L Temperature Source Pulse Rate 98 83 96 Respiratory Rate 27 H 18 20 H Blood Pressure 123/84 H 123/80 H 138/90 H Blood Pressure Mean 97 94 106 Pulse Ox 93 92 99 Oxygen Delivery Method Room Air HEENT Reports moist mucous membranes Neck supple and no JVD Resp normal respiratory effort and clear to auscultation bilaterally Cardio regular rate Rate: tachycardic GI soft to palpation, non-tender and non-distended Neuro CN's II-XII intact bilaterally and no sensory deficits noted Nolberto Coma Scale: document GCS findings Spontaneous Obeys Commands Confused 14 Sensorium / Orientation: alert and oriented to person Motor Exam: strength 5/5 throughout MDM MDM MDM Narrative Medical decision making narrative: Diagnosis includes alcohol intoxication, alcohol withdrawal, delirium tremens, cardiac dysrhythmia, cardiac ischemia, electrolyte abnormality, hepatic encephalopathy, sepsis, pneumonia, intracranial bleeding, and coagulopathy. CT scan of the brain will be obtained to assess for intracranial bleeding. Chest x-ray will be obtained to assess for pneumonia and pneumothorax. EKG will be obtained to assess for cardiac dysrhythmia and cardiac ischemia. CBC will be obtained to assess for leukocytosis and anemia. Comprehensive metabolic profile will be obtained to assess for hepatic function, renal function, and electrolyte abnormality. PT was INR and PTT will be obtained to assess for coagulopathy. Lipase will be obtained to assess for pancreatitis. Serum lactate will be obtained to assess for sepsis. High-sensitivity troponin will be obtained to assess for cardiac ischemia. 2-hour repeat high-sensitivity troponin will be obtained to assess for ongoing cardiac ischemia. Urinalysis will be obtained to assess for urinary tract infection and hematuria. Urine tox screen will be obtained to assess for substance abuse. Serum alcohol level will be obtained to assess for alcohol intoxication. Serum ammonia level will be obtained to assess for hepatic encephalopathy. Lab Data Attestation: I reviewed the patient's lab results. Lab results narrative: CBC was reviewed and was within normal limits. PT with INR and PTT were reviewed. Pro time was slightly elevated at 15.7. INR is 1.3. PTT was normal at 31.9. Comprehensive metabolic profile was reviewed. Glucose was slightly elevated at 131. AST was slightly elevated at 86. ALT was normal at 40. Lipase was reviewed and was normal at 30. Serum ammonia level was reviewed and was normal at 30. Serum lactate was reviewed and was elevated at 7.9. Urinalysis was reviewed. There is no evidence of urinary tract infection or hematuria. Urine tox screen was reviewed and was negative. Serum alcohol level was reviewed and was elevated at 431. Initial high-sensitivity troponin was reviewed and was normal at 9. 2-hour repeat high-sensitivity troponin was reviewed and was normal at 12. Labs: Laboratory Results - last 24 hr 04/27/24 04/27/24 04/27/24 13:11 13:20 14:30 WBC 6.5 RBC 4.34 L Hgb 14.2 Hct 42.2 MCV 97.2 H MCH 32.7 H MCHC 33.6 RDW Std Deviation 51.2 H RDW Coeff of Sherin 14.2 Plt Count 151 MPV 10.1 Immature Gran % (Auto) 0.500 Neut % (Auto) 58.2 Lymph % (Auto) 33.7 [place] % (Auto) 5.3 Eos % (Auto) 1.1 Baso % (Auto) 1.2 H Absolute Neuts (auto) 3.8 Absolute Lymphs (auto) 2.18 Nucleated RBC % 0 PT 15.7 H INR 1.3 APTT 31.9 Sodium 144 Potassium 4.2 Chloride 106 Carbon Dioxide 26.0 Anion Gap 12 BUN 7 Creatinine 1.20 Est GFR (MDRD) Af Amer 81 Est GFR (MDRD) Non-Af 67 BUN/Creatinine Ratio 5.8 L Glucose 131 H Lactic Acid 7.9 H* Calcium 9.0 Total Bilirubin 0.80 AST 86 H ALT 40 Alkaline Phosphatase 113 Ammonia 30.0 Troponin I High Sens 9 Total Protein 8.2 Albumin 3.4 Globulin 4.8 H Albumin/Globulin Ratio 0.7 L Lipase 30 Urine Color Yellow Urine Clarity Clear Urine pH 7.0 Ur Specific [place] 1.010 Urine Protein 15 H Urine Glucose (UA) Normal Urine Ketones 15 H Urine Occult Blood Negative Urine Nitrite Negative Urine Bilirubin Negative Urine Urobilinogen Normal Ur Leukocyte Esterase Negative Urine RBC 0 SEEN Urine WBC 0 SEEN Ur Squamous Epith Cells 0 SEEN Urine Bacteria 0 SEEN Urine Mucus 0 SEEN Urine Opiates Screen NEGATIVE Urine Methadone Screen NEGATIVE Ur Barbiturates Screen NEGATIVE Ur Phencyclidine Scrn NEGATIVE Ur Amphetamines Screen NEGATIVE MDMA (Ecstasy) Screen NEGATIVE U Benzodiazepines Scrn NEGATIVE Urine Cocaine Screen NEGATIVE U Cannabinoids Screen NEGATIVE Ur Drug Screen Comment Ethyl Alcohol 431.0 H* 04/27/24 04/27/24 15:30 16:05 WBC RBC Hgb Hct MCV MCH MCHC RDW Std Deviation RDW Coeff of Sherin Plt Count MPV Immature Gran % (Auto) Neut % (Auto) Lymph % (Auto) [place] % (Auto) Eos % (Auto) Baso % (Auto) Absolute Neuts (auto) Absolute Lymphs (auto) Nucleated RBC % PT INR APTT Sodium Potassium Chloride Carbon Dioxide Anion Gap BUN Creatinine Est GFR (MDRD) Af Amer Est GFR (MDRD) Non-Af BUN/Creatinine Ratio Glucose Lactic Acid 4.3 H* Calcium Total Bilirubin AST ALT Alkaline Phosphatase Ammonia Troponin I High Sens 12 Total Protein Albumin Globulin Albumin/Globulin Ratio Lipase Urine Color Urine Clarity Urine pH Ur Specific [place] Urine Protein Urine Glucose (UA) Urine Ketones Urine Occult Blood Urine Nitrite Urine Bilirubin Urine Urobilinogen Ur Leukocyte Esterase Urine RBC Urine WBC Ur Squamous Epith Cells Urine Bacteria Urine Mucus Urine Opiates Screen Urine Methadone Screen Ur Barbiturates Screen Ur Phencyclidine Scrn Ur Amphetamines Screen MDMA (Ecstasy) Screen U Benzodiazepines Scrn Urine Cocaine Screen U Cannabinoids Screen Ur Drug Screen Comment Ethyl Alcohol Radiography Chest X-Ray - ED: 1 View, Read by ED Physician, Read by Radiologist and No Acute Disease Diagnostic Testing: Clinical Impression(s) from Imaging Studies Brain CT 04/27/24 13:06 IMPRESSION: Chronic involutional changes of the brain. No acute abnormality is seen. Electronically Signed: Dov Garrison MD at 14:09 EDT , Chest X-Ray 04/27/24 14:03 IMPRESSION: Normal x-ray examination of the chest. Electronically Signed: Dov Garrison MD at 14:26 EDT , CT scan of the brain was obtained. There is no acute intracranial abnormality. This was interpreted by the radiologist and was also independently reviewed by myself. Portable 1 view chest x-ray was obtained. On my independent interpretation, lung [place] are clear. There is normal cardiac silhouette. Bony thorax is normal. There is no acute process noted. Radiologist also interpreted the x- ray and agrees. EKG Initial EKG: Attestation: I personally reviewed and interpreted this EKG as follows: Interpretation: Sinus Tachycardia (125) Comments: EKG was obtained. On my independent interpretation, it shows sinus tachycardia with a rate of 125. WA interval was normal at 138 ms. QRS interval was normal at 76 ms. QTc interval was normal at 461 ms. [place] was normal. There are no acute ST or T wave changes noted. Prior EKG tracings: available for review Prior: Unchanged (03/26/2024) Management Discussion w/another healthcare provider: Hospitalist Treatment and Re-Evaluation Narrative: Patient was given IV fluids. Patient was given a dose of Ativan. Patient was given a dose of phenobarbital. Patient was more awake and alert after IV fluids. Patient was advised of his findings. I did recommend admission to the hospital for alcohol detox. Initially, the patient was agreeable with this. However, later, the patient told nursing staff that he just wants to go home. A repeat lactate was obtained after IV fluids. Repeat lactate was reviewed and was lower at 4.3. Patient had an episode where he fell asleep and his pulse oximeter dropped to 78%. Patient states he has a history of sleep apnea. Patient was placed on 2 L nasal cannula. Patient is agreeable to be admitted to the hospital. Case was discussed with the hospitalist. She will be in to evaluate the patient and admit the patient to her service. Patient and friends understood and were agreeable with the plan. All questions were answered. Discharge Plan Dx/Rx/DC Orders Clinical Impression: Alcohol withdrawal, HTN (hypertension), Lactic acidosis Disposition Disposition: Acute Care [facility]
--- NOTE | 2024-04-27 13:06 | CT_ITS ---
STUDY: CT BRAIN WITHOUT CONTRAST REASON FOR EXAM: Male, 54 years old. Head injury RADIATION DOSAGE (If Supplied By Facility): CTDIvol = ( 44.99 ) mGy, DLP = ( 846.73 ) mGycm TECHNIQUE: Transaxial CT imaging of the brain was performed without administration of intravenous contrast material. Individualized dose optimization techniques were used for this CT. COMPARISON: Comparison is made with prior study dated March 26, 2024. FINDINGS: Normal soft tissue structures. Normal calvarium. There is mild cerebral atrophy with widening of the extra-axial spaces and ventricular dilatation. Normal white matter tracts of the cerebral hemispheres. Stable 5.8 mm lacunar is seen in the insular cortex of the left temporal lobe. Normal brainstem. Normal cerebellum. There is no intracranial hemorrhage. There are no findings of an acute ischemic infarction. Atherosclerotic calcification of the cavernous portions of the internal carotid arteries bilaterally. Minimal mucosal thickening along the medial wall of the left maxillary sinus. CT/Brain/Head without Contrast IMPRESSION: Chronic involutional changes of the brain. No acute abnormality is seen. Electronically Signed: Dov Garrison MD at 14:09 EDT ,
--- NOTE | 2024-04-27 13:06 | EKG12_ITS ---
Test Reason : CP Blood Pressure : / mmHG Vent. Rate : 125 BPM Atrial Rate : 125 BPM P-R Int : 138 ms QRS Dur : 076 ms QT Int : 320 ms P-R-T Axes : 044 022 077 degrees QTc Int : 461 ms Sinus tachycardia Low voltage QRS Borderline ECG Confirmed by AWA RAMOS, PERLA ([id number]), medical transcription editor SUKHJINDER NAVA ([id number]) on 04/29/2024 10:34:29 A M Referred By: JONATAN/ABIGAIL Confirmed By:LILO BILLINGS MD
[2024-04-27] MEDS: 0.9% Normal Saline (1000mL) 1,000 ML 1000 ML IV ×3 (13:15→16:00)
[2024-04-27] MEDS: LORazepam 2 MG/ML Syringe 1 MG IV ×2 (13:15→13:50)
[2024-04-27 13:23] LABS: Absolute Lymphocyte Count 2.18 X10^3/uL (0.83-4.51); Absolute Neutrophil Count 3.8 X10^3/uL (2.0-7.7); Basophil# 0.08 X10^3/uL; Basophil% 1.2 % (0-1); Eosinophil# 0.07 X10^3/uL; Eosinophils% 1.1 % (0-5); Hematocrit 42.2 % (40-54); Hemoglobin 14.2 g/dL (13.0-16.5); Lymphocyte # 2.18 X10^3/ul (0.83-4.51); Lymphocyte % 33.7 % (19-41); Mean Corp Hgb Conc 33.6 g/dL (32-36); Mean Corpuscular Hgb 32.7 pg (27.0-32.0); Mean Corpuscular Volume 97.2 fL (80-94); Mean Platelet Vol. 10.1 fl (6.2-12.0); Monocyte# 0.34 X10^3/uL; Monocyte% 5.3 % (0-10); NRBC Flagged by Analyzer 0 % (0-5); Neutrophil # 3.76 X10^3/uL (2.7-7.7); Neutrophil % 58.2 % (47-70); Platelet Count 151 K/mm3 (150-450); RBC Distribution Width CV 14.2 % (11.6-14.6); RBC Distribution Width SD 51.2 fl (35.1-43.9); Red Blood Count 4.34 M/mm3 (4.6-6.2); White Blood Count 6.5 K/mm3 (4.4-11.0)
--- NOTE | 2024-04-27 13:27 | ED.RN ---
unable to obtain time of last drink d/t pt. disorientation.
[2024-04-27 13:36] LABS: International Normalized Ratio 1.3; Partial Thromboplast Time 31.9 Seconds (24.1-36.2); Prothrombin Time (Protime)PT. 15.7 SECONDS (11.7-14.9)
[2024-04-27 13:41] LABS: ALB/GLOB Ratio 0.7 RATIO (0.9-2.4); AST(SGOT) 86 U/L (15-37); Alanine Aminotransfer ALT/SGPT 40 U/L (16-61); Albumin, Serum 3.4 g/dL (3.2-5.0); Alkaline Phosphatase 113 U/L (45-117); Anion Gap 12 (5-15); BUN 7 mg/dL (7-18); BUN/Creat Ratio 5.8 RATIO (10-20); Chloride 106 mmol/L (98-107); EST Glomerular Filtration Rate 67 mL/min (>60); Est Glom Filt Rate - Afr Amer 81 mL/min (>60); Globulin 4.8 g/dL (2.2-4.2); Glucose 131 mg/dL (74-106); Lipase 30 U/L (13-75); Potassium 4.2 mmol/L (3.5-5.1); Protein, Total 8.2 g/dL (6.4-8.2); Sodium Level 144 mmol/L (136-145); Troponin-I HS (w/2H Reflex) 9 pg/mL (3.0-78.0)
[2024-04-27] MEDS: Phenobarbital 32.4 MG Tablet 97.2 MG PO (13:41)
--- NOTE | 2024-04-27 13:47 | ED.RN ---
[facility] CRITICAL CALLED, ETOH 431. AWARE
--- NOTE | 2024-04-27 14:03 | RAD_ITS ---
STUDY: X-RAY CHEST REASON FOR EXAM: Male, 54 years old. Dyspnea TECHNIQUE: Single AP portable view of the chest. COMPARISON: Comparison is made with prior study dated January 05, 2018. FINDINGS: EKG electrodes are seen. The lungs are clear and expanded. There is no demonstrated pleural abnormality. Normal size heart. Normal mediastinum and seema. Normal visualized pulmonary arteries. Normal visualized aortic arch and descending thoracic aorta. Normal visualized thoracic spine. Normal visualized ribs, clavicles, and shoulders. There is no demonstrated abnormality of the visualized soft tissue structures of the upper abdomen. RAD/Chest 1 View (Portable) IMPRESSION: Normal x-ray examination of the chest. Electronically Signed: Dov Garrison MD at 14:26 EDT ,
[2024-04-27 14:06] LABS: Lactic Acid 7.9 mmol/L (0.4-1.9)
--- NOTE | 2024-04-27 14:16 | ED.RN ---
pt. repeatedly asking to leave, friends at bedside insists pt. wants to enter detox program.
[2024-04-27 14:50] LABS: Bacteria 0 SEEN /hpf (None Seen); Mucous, Urine 0 SEEN /hpf (<or=2+); Red Blood Cells-Urine 0 SEEN /hpf (0-5); Squamous Epithelial Cells - UA 0 SEEN /hpf (0-5); White Blood Cells 0 SEEN /hpf (0-5)
[2024-04-27 15:02] LABS: Amphetamine Urine VISTA NEGATIVE (<1000 ng/mL); Barbiturate Urine VISTA NEGATIVE (< 200 ng/mL); Benzodiazepine Urine VISTA NEGATIVE (< 200 ng/mL); Cocaine Urine VISTA NEGATIVE (< 300 ng/mL); Ecstacy Urine VISTA NEGATIVE (< 500 ng/mL); Methadone Urine VISTA NEGATIVE (< 300 ng/mL); PCP Urine VISTA NEGATIVE (< 25 ng/mL); THC Urine VISTA NEGATIVE (< 50 ng/mL); Vista UDS pH Range 6
[2024-04-27 15:04] LABS: Color, Urine Yellow (Yellow); Glucose, Dipstick Normal (Normal); Ketone-Dipstick 15 mg/dl (Negative); Leukocyte Esterase-Dipstick Negative /ul (Negative); Nitrite-Dipstick Negative (Negative); Occult Blood-Urine Negative /ul (Negative); Protein-Dipstick 15 mg/dl (Negative); Urine Bilirubin Dipstick Negative (Negative); Urine Clarity Clear (Clear); Urine Urobilinogen Normal (Normal)
[2024-04-27 15:18] LABS: Reflex Troponin-HS? (from REC) Y
--- NOTE | 2024-04-27 16:02 | HP.PCM.HOS_ITS ---
HPI - General General Date of Admission: 04/27/24 Date of Service: 04/27/24 Chief Complaint: Acute alcohol intoxication HPI Narrative AVELINO JULIO, is a 54 M who presented to the emergency department [facility] on 04/27/2024 after he was found by his friends with multiple empty bottles of vodka in his home. His friends reported on presentation that he drinks about a half a bottle of hard liquor per day. Patient admits to about 1/5 of hard liquor daily. Patient reported that his last drink was on the morning of admission. Friends reported that he did have a fall while he was sober about a month ago and hit his head and he is currently undergoing treatment for concussion. His friends reported that his is currently not home and his drinking had increased over the past couple days. Patient was initially very reluctant to stay in the hospital and ramp paperwork was not signed however the patient was agreeable for admission to go through detox and to see 180. Patient denies any tobacco abuse or any other substance use. Vital signs on presentation demonstrated temperature of 98.2, heart rate 118, respiratory is 18, blood pressure is 151/101, pulse ox was 93% on room air. He does have a history of pancytopenia related to alcoholic cirrhosis however due to dehydration his counts are elevated with a normal white count and hemoglobin as well as platelet count at the time of presentation. I do suspect this is all related to hemoconcentration. Coags are overtly unremarkable. Chemistry panel shows normal electrolytes with a serum creatinine of 1.2 having a baseline of 0.7-0.9. So he does appear to be a bit dehydrated. His initial blood sugar was 131 however this was nonfasting. His lactic acid was 7.9 initially but after hydration improved to 74.3 fairly rapidly. Is unclear if he had a seizure at home prior to presentation that created lactic acidosis as well. His anion gap and carbon dioxide levels were normal at 12 and 26 respectively. Bilirubin was normal. AST is mildly elevated at 86 with a normal ALT. Ammonia level was 30. Cardiac enzymes were unremarkable. Lipase was 30. His UA is unremarkable. Toxicology screen was unremarkable except for positive ethyl alcohol level at 431. Chest x-ray was unremarkable for any acute findings. EKG was sinus tachycardia with a heart rate of 125, normal intervals and axis with no ST-T wave changes concerning for acute ischemia. He was reluctantly agreeable to stay however upon my consultation with him he was concerned about his job and I suspect he is high risk for leaving AGAINST MEDICAL ADVICE. ON LICENSE OF [facility] Medical History Chronic anemia Former tobacco use GERD (gastroesophageal reflux disease) Hypertension ALC (alcoholic liver cirrhosis) Thrombocytopenia Alcoholism Home Medications ?Medication ?Instructions ?Recorded ?Last Taken ?Type Nugenix 3 tab PO DAILY 03/26/24 03/26/24 History ondansetron 4 mg disintegrating 4 mg PO Q6H PRN PRN Nausea #15 tabs 03/26/24 Unknown Rx tablet Allergy/AdvReac Type Severity Reaction Status Date / Time No Known Allergies Allergy Verified 04/27/24 12:44 no significant family history Surgical History No history of previous surgery no surgical history Social History household members: spouse and children Smoking Status: Former smoker how long ago did patient quit smoking: Quit 7 yrs prior, smoked light while drinking only. alcohol intake: current alcohol intake frequency: a few times a week Alcohol type: hard liquor details: Prior heavy, down to 2-3 oz vodka x 2-3 2-3x/week. substance use type: does not use ROS Constitutional Constitutional: Reports weakness; Denies anorexia, change in weight, chills, fatigue, fever(s), malaise, night sweats or other Eyes Eyes: Denies blurry vision, change in eye color, change in vision, discharge from eye(s), double vision, erythema, eye pain, loss of vision or other ENT HEENT: Reports other Details: Dry mouth ; Denies abnormal hearing, dysphagia, ear pain, epistaxis, headache(s), hearing loss, nasal congestion, nasal discharge, post nasal drip, sinus pressure or sore throat Cardiovascular Cardiovascular: Denies chest pain, claudication, dyspnea on exertion, edema, lightheadedness, orthopnea, palpitations, paroxysmal nocturnal dyspnea, rapid heart rate, syncope or other Respiratory/Chest Respiratory/Chest: Denies cough, dyspnea, excessive phlegm production, hemoptysis, productive cough, shortness of breath at rest, shortness of breath with exertion, wheezing or other Gastrointestinal Gastrointestinal: Reports nausea and vomiting; Denies abdominal pain, coffee ground emesis, constipation, diarrhea, dyspepsia, hematemesis, hematochezia, loose stools, melena or other Genitourinary Genitourinary: Denies burning urination, difficulty urinating, dysuria, hematuria, nocturia, urinary frequency, urinary hesitancy, urinary incontinence, urinary urgency or other Musculoskeletal Musculoskeletal: Reports joint pain and joint stiffness Neurologic Neurologic: Reports confusion, disequilibrium and headache(s); Denies abnormal gait, abnormal speech, dizziness, focal weakness, numbness, paresthesias, seizure-like activity, seizures, syncope, tingling, tremor(s) or other Psychiatric Psychiatric: Denies anxiety, depression, homicidal ideation, suicidal ideation or other Endocrine Endocrinology: Denies change in body appearance, cold intolerance, excessive sweating, heat intolerance, polydipsia, polyuria or other Hematologic/Lymphatic Hematologic/Lymphatic: Reports anemia and easy bruising; Denies easy bleeding, lymphadenopathy or other Allergic/Immunologic Allergic/Immunologic: Denies rhinitis, hives, eczemia, asthma or other Vital Signs Vital Signs Vital Signs: 04/27/24 12:45 04/27/24 13:22 04/27/24 14:00 Temperature 98.2 F Temperature Source Temporal Pulse Rate 118 H 106 H 93 Respiratory Rate 18 39 H 18 Blood Pressure 151/101 H 140/97 H 133/87 H Blood Pressure Mean 117 111 102 Pulse Ox 93 97 Oxygen Delivery Method Room Air 04/27/24 15:00 Temperature Temperature Source Pulse Rate 98 Respiratory Rate 27 H Blood Pressure 123/84 H Blood Pressure Mean 97 Pulse Ox 93 Oxygen Delivery Method Room Air Weight Weight: 92.5 kg Body Mass Index (BMI) 28.4 Physical Exam Const alert, oriented x3, no apparent distress and well nourished; Negative for average body habitus or healthy appearing Constitutional Narrative: Middle-aged, white male, sitting up in bed, friend at bedside, patient appears intoxicated but interacts appropriately, no significant agitation, patient does not appear toxic and currently appears comfortable General Appearance: cooperative HEENT normocephalic, head/scalp atraumatic and hearing grossly normal bilaterally HEENT Narrative: Mouth is dry, Mallampati is 3, no thrush, dentition is good Resp normal respiratory effort, no retractions, no use of accessory muscles and clear to auscultation bilaterally Auscultation: Negative for rales, rhonchi or wheezes Cardio regular rhythm, S1 normal heart sound, S2 normal heart sound, no murmurs, no rub, no gallops and no clicks Cardio Narrative: Mild tachycardia GI normal to inspection, nondistended, normoactive bowel sounds, soft to palpation and non-tender Extremity no clubbing, cyanosis or edema Extremity Narrative: 2+ pedal edema Neuro oriented x3, moves all extremities and no focal motor deficits Neuro Narrative: No asterixis noted Speech: speech normal Psych Negative for affect normal Psych Narrative: Eye contact is good and patient interacts appropriately, affect is slightly flat Results Lab / Micro Data 04/27/24 13:11 04/27/24 13:11 Labs: Laboratory Results - last 24 hr 04/27/24 13:11: WBC 6.5, RBC 4.34 L, Hgb 14.2, Hct 42.2, MCV 97.2 H, MCH 32.7 H, MCHC 33.6, RDW Std Deviation 51.2 H, RDW Coeff of Sherin 14.2, Plt Count 151, MPV 10.1, Immature Gran % (Auto) 0.500, Neut % (Auto) 58.2, Lymph % (Auto) 33.7, [place] % (Auto) 5.3, Eos % (Auto) 1.1, Baso % (Auto) 1.2 H, Absolute Neuts (auto) 3.8, Absolute Lymphs (auto) 2.18, Nucleated RBC % 0, PT 15.7 H, INR 1.3, APTT 31.9, Sodium 144, Potassium 4.2, Chloride 106, Carbon Dioxide 26.0, Anion Gap 12, BUN 7, Creatinine 1.20, Est GFR (MDRD) Af Amer 81, Est GFR (MDRD) Non-Af 67, BUN/Creatinine Ratio 5.8 L, Glucose 131 H, Calcium 9.0, Total Bilirubin 0.80, A ST 86 H, ALT 40, Alkaline Phosphatase 113, Troponin I High Sens 9, Total Protein 8.2, Albumin 3.4, Globulin 4.8 H, Albumin/Globulin Ratio 0.7 L, Lipase 30, Ethyl Alcohol 431.0 H* 04/27/24 13:20: Lactic Acid 7.9 H*, Ammonia 30.0 04/27/24 14:30: Urine Color Yellow, Urine Clarity Clear, Urine pH 7.0, Ur Specific [place] 1.010, Urine Protein 15 H, Urine Glucose (UA) Normal, Urine Ketones 15 H, Urine Occult Blood Negative, Urine Nitrite Negative, Urine Bilirubin Negative, Urine Urobilinogen Normal, Ur Leukocyte Esterase Negative, Urine RBC 0 SEEN, Urine WBC 0 SEEN, Ur Squamous Epith Cells 0 SEEN, Urine Bacteria 0 SEEN, Urine Mucus 0 SEEN, Urine Opiates Screen NEGATIVE, Urine Methadone Screen NEGATIVE, Ur Barbiturates Screen NEGATIVE, Ur Phencyclidine Scrn NEGATIVE, Ur Amphetamines Screen NEGATIVE, MDMA (Ecstasy) Screen NEGATIVE, U Benzodiazepines Scrn NEGATIVE, Urine Cocaine Screen NEGATIVE, U Cannabinoids Screen NEGATIVE, Ur Drug Screen Comment Imaging Radiology Impression Brain CT 04/27/24 13:06 IMPRESSION: Chronic involutional changes of the brain. No acute abnormality is seen. Electronically Signed: Dov Garrison MD at 14:09 EDT , Chest X-Ray 04/27/24 14:03 IMPRESSION: Normal x-ray examination of the chest. Electronically Signed: Dov Garrison MD at 14:26 EDT , Assessment & Plan Assessment/Plan (1) Lactic acidosis: (2) Alcohol withdrawal: (3) Pancytopenia: (4) Dehydration: (5) Acute alcohol intoxication: PLAN: Plan Acute alcohol intoxication with pending withdrawal -Patient intoxicated with a blood alcohol level of 431 on presentation -Patient does indicate he does go several days without drinking however does not sound like he has done so recently -Admits to drinking about 1/5 a day at least -Per friends drinking has ramped up recently -Phenobarbital taper ordered -CIWA with as needed Ativan available -Thiamine and folate -Supportive medication for withdrawal symptoms -180 consultation for assistance with discharge planning however patient not admitted to RAMP Acute dehydration secondary to the above -Aggressive hydration with IV fluids -Liberalize diet -Recheck in a.m. Lactic acidosis -Etiology is unclear -We are unsure if patient seized at home however he did not have any bites on his tongue and did not appear to have any loss of bowel or bladder -May be related to marked dehydration in the setting of intoxication -Resolving History of pancytopenia secondary to liver disease -Current counts are normalized however suspect it would drop when hydrated as patient appeared to be hemoconcentrated on presentation -Repeat lab in a.m. History of alcoholic liver disease/alcoholic cirrhosis -Recommend cessation -Would recommend outpatient follow-up with GI Recent closed head trauma with resultant concussion -Continue outpatient follow-up History of pancreatitis -Recurrent issues related to alcohol consumption -No symptoms at this time -Monitor clinically -Patient does have known pancreatic pseudocyst GERD -Patient currently not on any medication for this History of tobacco abuse -Patient never with heavy use and would smoke intermittently with drinking -No tobacco use in the last 7 years -Encouraged ongoing cessation DVT prophylaxis -Low risk -Encourage early and frequent ambulation CODE STATUS -Full code Charges/Coding Visit Charges Inpatient E&M: 08513 Init Hosp L2
[2024-04-27 16:03] LABS: Troponin-I HS 12 pg/mL (3.0-78.0)
[2024-04-27 16:58] LABS: Lactic Acid 4.3 mmol/L (0.4-1.9)
[2024-04-27 17:23] LABS: Reflex Lactate? Y
--- NOTE | 2024-04-27 17:54 | ED.RN ---
DR. RUTLEDGE CONFIRMED. PT. IS NOT A RAMP PATIENT. DOES NOT NEED CONTRACT SIGNED.
[2024-04-27 18:16] LABS: Lactic Acid 4.1 mmol/L (0.4-1.9)
[2024-04-27] MEDS: Phenobarbital 32.4 MG Tablet 64.8 MG PO ×2 (18:33→22:38)
[2024-04-27] MEDS: 0.9% Normal Saline (1000mL) 1,000 ML 150 ML IV (18:33)
[2024-04-27 20:13] LABS: Reflex Lactate? Y
[2024-04-27] MEDS: traZODone 100 MG Tablet PO (22:38)
[2024-04-28] VITALS (7 sets, daily range): BP systolic 136–166; BP diastolic 95–111; PULSE 77–108; RESP 16–18; TEMP 36.6–37.1; O2SAT 95–96
[2024-04-28] MEDS: 0.9% Saline Lock 10 ML Syringe IV ×2 (02:53→09:40)
[2024-04-28] MEDS: Phenobarbital 32.4 MG Tablet 64.8 MG PO ×6 (02:53→22:40)
[2024-04-28 07:03] LABS: Absolute Lymphocyte Count 0.77 X10^3/uL (0.83-4.51); Absolute Neutrophil Count 1.5 X10^3/uL (2.0-7.7); Basophil# 0.02 X10^3/uL; Basophil% 0.8 % (0-1); Eosinophil# 0.02 X10^3/uL; Eosinophils% 0.8 % (0-5); Hematocrit 33.7 % (40-54); Hemoglobin 11.4 g/dL (13.0-16.5); Lymphocyte # 0.77 X10^3/ul (0.83-4.51); Lymphocyte % 29.7 % (19-41); Mean Corp Hgb Conc 33.8 g/dL (32-36); Mean Corpuscular Hgb 33.1 pg (27.0-32.0); Monocyte# 0.25 X10^3/uL; Monocyte% 9.7 % (0-10); NRBC Flagged by Analyzer 0 % (0-5); Neutrophil # 1.52 X10^3/uL (2.7-7.7); Neutrophil % 58.6 % (47-70); POSITIVE COUNT YES; Platelet Count 66 K/mm3 (150-450); RBC Distribution Width CV 14.1 % (11.6-14.6); RBC Distribution Width SD 50.8 fl (35.1-43.9); Red Blood Count 3.44 M/mm3 (4.6-6.2); White Blood Count 2.6 K/mm3 (4.4-11.0)
[2024-04-28 07:16] LABS: Differential Indicated SCAN CRITERIA MET
[2024-04-28 07:47] LABS: ALB/GLOB Ratio 0.7 RATIO (0.9-2.4); AST(SGOT) 73 U/L (15-37); Alanine Aminotransfer ALT/SGPT 32 U/L (16-61); Albumin, Serum 2.7 g/dL (3.2-5.0); Alkaline Phosphatase 92 U/L (45-117); Anion Gap 9 (5-15); BUN 5 mg/dL (7-18); BUN/Creat Ratio 5.6 RATIO (10-20); Calcium,Total 7.7 mg/dL (8.5-10.1); Chloride 107 mmol/L (98-107); Creatinine, Serum 0.88 mg/dL (0.70-1.30); EST Glomerular Filtration Rate 95 mL/min (>60); Est Glom Filt Rate - Afr Amer 115 mL/min (>60); Estimated Creatinine Clearance 111.54 ml/min; Globulin 3.8 g/dL (2.2-4.2); Glucose 84 mg/dL (74-106); Magnesium 1.2 mg/dL (1.6-2.6); Phosphorus 2.2 mg/dL (2.5-4.9); Potassium 3.7 mmol/L (3.5-5.1); Protein, Total 6.5 g/dL (6.4-8.2); Sodium Level 140 mmol/L (136-145)
[2024-04-28 08:38] LABS: Platelet Estimate MKD DEC (ADEQ)
--- NOTE | 2024-04-28 09:32 | PN.HOSP_ITS ---
Subjective Subjective No issues overnight, CIWA score 1 Objective Data Objective Data Vital Signs: Vital Signs Temp Pulse Resp BP Pulse Ox O2 Del Method 98.6 F 103 H 18 153/98 H 95 Room Air 04/28/24 08:59 04/28/24 08:59 04/28/24 08:59 04/28/24 08:59 04/28/24 08:59 04/28/24 08:59 Oxygen Delivery Method Room Air Weight: 203 lb 14.841 oz Body Mass Index (BMI) 28.4 Intake & Output: Intake and Output for Last 24 Hours 04/27/24 04/28/24 04/29/24 03:59 03:59 03:59 Intake Total 4000 / 4000 Balance 4000 / 4000 Lab / Micro Data 04/28/24 06:41 04/28/24 06:41 Labs: Laboratory Results - last 24 hr 04/27/24 13:11: WBC 6.5, RBC 4.34 L, Hgb 14.2, Hct 42.2, MCV 97.2 H, MCH 32.7 H, MCHC 33.6, RDW Std Deviation 51.2 H, RDW Coeff of Sherin 14.2, Plt Count 151, MPV 10.1, Immature Gran % (Auto) 0.500, Neut % (Auto) 58.2, Lymph % (Auto) 33.7, [place] % (Auto) 5.3, Eos % (Auto) 1.1, Baso % (Auto) 1.2 H, Absolute Neuts (auto) 3.8, Absolute Lymphs (auto) 2.18, Nucleated RBC % 0, PT 15.7 H, INR 1.3, APTT 31.9, Sodium 144, Potassium 4.2, Chloride 106, Carbon Dioxide 26.0, Anion Gap 12, BUN 7, Creatinine 1.20, Est GFR (MDRD) Af Amer 81, Est GFR (MDRD) Non-Af 67, BUN/Creatinine Ratio 5.8 L, Glucose 131 H, Calcium 9.0, Total Bilirubin 0.80, A ST 86 H, ALT 40, Alkaline Phosphatase 113, Troponin I High Sens 9, Total Protein 8.2, Albumin 3.4, Globulin 4.8 H, Albumin/Globulin Ratio 0.7 L, Lipase 30, Ethyl Alcohol 431.0 H* 04/27/24 13:20: Lactic Acid 7.9 H*, Ammonia 30.0 04/27/24 14:30: Urine Color Yellow, Urine Clarity Clear, Urine pH 7.0, Ur Specific [place] 1.010, Urine Protein 15 H, Urine Glucose (UA) Normal, Urine Ketones 15 H, Urine Occult Blood Negative, Urine Nitrite Negative, Urine Bilirubin Negative, Urine Urobilinogen Normal, Ur Leukocyte Esterase Negative, Urine RBC 0 SEEN, Urine WBC 0 SEEN, Ur Squamous Epith Cells 0 SEEN, Urine Bacteria 0 SEEN, Urine Mucus 0 SEEN, Urine Opiates Screen NEGATIVE, Urine Methadone Screen NEGATIVE, Ur Barbiturates Screen NEGATIVE, Ur Phencyclidine Scrn NEGATIVE, Ur Amphetamines Screen NEGATIVE, MDMA (Ecstasy) Screen NEGATIVE, U Benzodiazepines Scrn NEGATIVE, Urine Cocaine Screen NEGATIVE, U Cannabinoids Screen NEGATIVE, Ur Drug Screen Comment 04/27/24 15:30: Troponin I High Sens 12 04/27/24 16:05: Lactic Acid 4.3 H* 04/27/24 : Lactic Acid 4.1 H* 04/28/24 06:41: WBC 2.6 L, RBC 3.44 L, Hgb 11.4 L, Hct 33.7 L, MCV 98.0 H, MCH 33.1 H, MCHC 33.8, RDW Std Deviation 50.8 H, RDW Coeff of Sherin 14.1, Plt Count 66 L, MPV 10.0, Immature Gran % (Auto) 0.400, Neut % (Auto) 58.6, Lymph % (Auto) 29.7, [place] % (Auto) 9.7, Eos % (Auto) 0.8, Baso % (Auto) 0.8, Absolute Neuts (auto) 1.5 L, Absolute Lymphs (auto) 0.77 L, Nucleated RBC % 0, Differential Comment , Platelet Estimate MKD DEC, Sodium 140, Potassium 3.7, Chloride 107, Carbon Dioxide 24.0, Anion Gap 9, BUN 5 L, Creatinine 0.88, Estim Creat Clear Calc 111.54, Est GFR (MDRD) Af Amer 115, Est GFR (MDRD) Non-Af 95, B UN/Creatinine Ratio 5.6 L, Glucose 84, Calcium 7.7 L, Phosphorus 2.2 L, M agnesium 1.2 L, Total Bilirubin 1.20 H, AST 73 H, ALT 32, Alkaline Phosphatase 92, Total Protein 6.5, Albumin 2.7 L, Globulin 3.8, Albumin/Globulin Ratio 0.7 L Radiography Diagnostic Testing: Radiology Impression Brain CT 04/27/24 13:06 IMPRESSION: Chronic involutional changes of the brain. No acute abnormality is seen. Electronically Signed: Dov Garrison MD at 14:09 EDT , Chest X-Ray 04/27/24 14:03 IMPRESSION: Normal x-ray examination of the chest. Electronically Signed: Dov Garrison MD at 14:26 EDT , Physical Exam Narrative General: Alert, Oriented x3, Cooperative, No apparent distress HEENT: Atraumatic, PERRLA, EOMI, Normocephalic Oral: Moist Mucosa Neck: Supple, No JVD Lungs: Clear to auscultation, Normal air movement, No rhonchi, No wheeze, No rales Cardiovascular: Tachycardic, Regular Rhythm, Normal S1, Normal S2, No murmurs Abdomen: Soft, Non Tender, Non-Distended, No Hepato-splenomegaly Extremities: No edema, Capillary Refill Less than 3 Seconds Skin: No rashes, No breakdown Musculoskeletal: No Tenderness to Palpation of Joints or Extremities Neurological: No focal neurological deficits, Motor Exam 5/5 strength throughout, Sensory exam intact to light touch and pain Psych/Mental Status: Flat Assessment & Plan Assessment/Plan (1) Alcohol withdrawal: (2) Acute alcohol intoxication: PLAN: Plan 1. Acute alcohol intoxication with withdrawal and dehydration/chronic pancytopenia/alcoholic liver disease with cirrhosis ? Continue with the alcohol withdrawal protocol ? Plan for 180 to evaluate for discharge planning ? Will replete any electrolyte derangements ? Will need outpatient GI follow-up for his liver disease DVT: Ambulation Charges/Coding Visit Charges Inpatient E&M: 98779 Subs Hosp L2
[2024-04-28] MEDS: Magnesium Sulfate 4gm/100mL 4 GM/100 ML IV.SOLN. IV (09:37)
[2024-04-28] MEDS: Thiamine Hydrochloride 100 MG Tablet PO (09:38)
[2024-04-28] MEDS: Folic Acid 1 MG Tablet PO (09:38)
--- NOTE | 2024-04-28 10:19 | CASEMGMT ---
JOHN SHETH Assessment Face to Face with patient for initial transition planning/care coordination assessment. RN MERYL introduced self and role at [facility], pt voices understanding. Pt is A&Ox4 and is resting comfortably in bed and is calm. Care providers, pharmacy, and demographics verified. Admitting dx: Acute ETOH Intoxication with Pending Withdrawal PCP: Temo Cruz Specialists: denies Preferred Pharmacy: [facility] Insurance: [facility] Prescription Benefit: Yes LNOK: Natalie Colin (W), Jose A Colin (Father) Living Arrangements: Pt lives with his and 3 kids (ages 21,18, & 12) in a two story home with two steps to enter ADLs/IADLs: Ind Transportation: Self, DME: BP Monitor. Denies further uses or needs HHC/SNF: Denies Hx or needs Pt?s goal: Home no needs Plan: home no needs. Pt states that he is independent and denies concerns at home. Pt denies the need for HHC or OP Tx at this time. CM to follow. Ena Whyte RN, CM
[2024-04-28] MEDS: Potassium Phosphate 21 MM in 0.9% Normal Saline (250mL Bag) 250 ML 84 MM IV (10:26)
[2024-04-28] MEDS: 0.9% Normal Saline (250mL Bag) 250 ML 15 ML IV (10:27)
--- NOTE | 2024-04-28 11:07 | ADDICTION ---
Met with pt to discuss D/C planning. Pt reports that he know he needs recovery and is willing to follow the recommendations of coordinator. Pt also agreed to the Vivitrol shot. He was screened and met criteria for that. He plans to follow up with Henrique for an assessment and treatment recommendations for the intensive outpatient program.
[2024-04-28] MEDS: Ibuprofen 400 MG Tablet PO (14:48)
[2024-04-28] MEDS: traZODone 100 MG Tablet PO (22:41)
[2024-04-28] MEDS: Propranolol LA 60 MG Capsule PO (23:41)
[2024-04-29] MEDS: Phenobarbital 32.4 MG Tablet 64.8 MG PO ×6 (03:42→22:46)
[2024-04-29 04:00] VITALS: BP 141/98; PULSE 67; RESP 16; TEMP 36.7; O2SAT 95
[2024-04-29 07:33] VITALS: O2SAT 96
[2024-04-29 08:34] LABS: Anion Gap 7 (5-15); BUN 5 mg/dL (7-18); Calcium,Total 8.3 mg/dL (8.5-10.1); Chloride 104 mmol/L (98-107); Creatinine, Serum 0.83 mg/dL (0.70-1.30); EST Glomerular Filtration Rate 103 mL/min (>60); Est Glom Filt Rate - Afr Amer 124 mL/min (>60); Estimated Creatinine Clearance 118.26 ml/min; Glucose 100 mg/dL (74-106); Magnesium 1.9 mg/dL (1.6-2.6); Phosphorus 2.2 mg/dL (2.5-4.9); Potassium 3.9 mmol/L (3.5-5.1); Sodium Level 137 mmol/L (136-145)
[2024-04-29 09:08] VITALS: BP 148/101; PULSE 67; RESP 16; TEMP 36.8; O2SAT 97
[2024-04-29] MEDS: Pantoprazole Sodium 40 MG Tablet PO (09:11)
[2024-04-29] MEDS: Propranolol LA 60 MG Capsule PO (09:11)
[2024-04-29] MEDS: Folic Acid 1 MG Tablet PO (09:11)
[2024-04-29] MEDS: Thiamine Hydrochloride 100 MG Tablet PO (09:11)
--- NOTE | 2024-04-29 11:52 | PCM.PN.HOSP ---
Subjective Subjective Doing well, no issues overnight. CIWA score of 2 Objective Data Objective Data Vital Signs: Vital Signs Temp Pulse Resp BP Pulse Ox O2 Del Method 98.2 F 67 16 148/101 H 97 Room Air 04/29/24 09:08 04/29/24 09:08 04/29/24 09:08 04/29/24 09:08 04/29/24 09:08 04/29/24 09:08 Oxygen Delivery Method Room Air Weight: 203 lb 14.841 oz Body Mass Index (BMI) 28.4 Intake & Output: Intake and Output for Last 24 Hours 04/28/24 04/29/24 04/30/24 03:59 03:59 03:59 Intake Total 4000 / 4000 432.25 / 432.25 Balance 4000 / 4000 432.25 / 432.25 Lab / Micro Data 04/28/24 06:41 04/29/24 07:13 Labs: Laboratory Results - last 24 hr 04/29/24 07:13: Sodium 137, Potassium 3.9, Chloride 104, Carbon Dioxide 26.0, Anion Gap 7, BUN 5 L, Creatinine 0.83, Estim Creat Clear Calc 118.26, Est GFR (MDRD) Af Amer 124, Est GFR (MDRD) Non-Af 103, BUN/Creatinine Ratio 6.0 L, Glucose 100, Calcium 8.3 L, Phosphorus 2.2 L, Magnesium 1.9 Physical Exam Narrative General: Alert, Oriented x3, Cooperative, No apparent distress HEENT: Atraumatic, PERRLA, EOMI, Normocephalic Oral: Moist Mucosa Neck: Supple, No JVD Lungs: Clear to auscultation, Normal air movement, No rhonchi, No wheeze, No rales Cardiovascular: Tachycardic, Regular Rhythm, Normal S1, Normal S2, No murmurs Abdomen: Soft, Non Tender, Non-Distended, No Hepato-splenomegaly Extremities: No edema, Capillary Refill Less than 3 Seconds Skin: No rashes, No breakdown Musculoskeletal: No Tenderness to Palpation of Joints or Extremities Neurological: No focal neurological deficits, Motor Exam 5/5 strength throughout, Sensory exam intact to light touch and pain Psych/Mental Status: Flat Assessment & Plan Assessment/Plan (1) Alcohol withdrawal: (2) Acute alcohol intoxication: PLAN: Plan 1. Acute alcohol intoxication with withdrawal and dehydration/chronic pancytopenia/alcoholic liver disease with cirrhosis ? Continue with the alcohol withdrawal protocol ? Plan for 180 to evaluate for discharge planning ? Will replete any electrolyte derangements ? Will need outpatient GI follow-up for his liver disease DVT: Ambulation Charges/Coding Visit Charges Inpatient E&M: 08802 Subs Hosp L2
[2024-04-29 14:15] VITALS: BP 132/93; PULSE 73; RESP 16; TEMP 36.9; O2SAT 97
[2024-04-29] MEDS: Potassium Phosphate 21 MM in 0.9% Normal Saline (250mL Bag) 250 ML 84 MM IV (15:33)
[2024-04-29 22:42] VITALS: BP 136/91; PULSE 74; RESP 16; TEMP 36.8; O2SAT 98
[2024-04-30 02:48] VITALS: BP 119/84; PULSE 72; RESP 16; TEMP 36.9; O2SAT 96
[2024-04-30] MEDS: Phenobarbital 32.4 MG Tablet 64.8 MG PO ×2 (02:50→08:02)
[2024-04-30 07:03] LABS: Phosphorus 2.7 mg/dL (2.5-4.9)
--- NOTE | 2024-04-30 07:37 | DCINST_ITS ---
Discharge Instructions Diet Discharge Diet: No restrictions Activity Discharge Activity: Return to Normal Activity Return to work on:: 05/03/24 Dressing / Incision Call your doctor if you observe: Fever of 101 or Higher, Shortness of breath, Dizziness, Fainting spells, Swelling in the ankles, Chest pain and Increased palpitations (irregular heartbeat) Follow Up Care Test Results: Test results from this visit will be discussed in further detail at your follow- up appointment, if applicable. Discharge Plan Admission Admit Date/Time: 04/27/24 17:28 Attending Provider: Nikunj Cage Primary Care Provider: Temo Cruz Consulting Providers: Lita Marte Discharge Orders/Prescriptions Prescriptions: Continued folic acid 1 mg tablet 1 mg PO DAILY pantoprazole 40 mg tablet,delayed release (DR/EC) 40 mg PO DAILY propranolol 60 mg capsule,extended release 24 hr 60 mg PO DAILY thiamine HCl (vitamin B1) 100 mg tablet 100 mg PO DAILY Referrals / Follow Up: Temo Cruz MD [Primary Care Provider] - Within 1 Week Disposition Disposition (needs filled in before D/C Order can be placed): Home, Self Care
[2024-04-30 08:00] VITALS: BP 134/92; PULSE 81; RESP 16; TEMP 36.7; O2SAT 99
[2024-04-30] MEDS: Folic Acid 1 MG Tablet PO (08:01)
[2024-04-30] MEDS: Thiamine Hydrochloride 100 MG Tablet PO (08:01)
[2024-04-30] MEDS: Propranolol LA 60 MG Capsule PO (08:01)
[2024-04-30] MEDS: Pantoprazole Sodium 40 MG Tablet PO (08:02)
--- NOTE | 2024-04-30 08:12 | DS.PCM_ITS ---
Providers Date of Admission: 04/27/24 Primary Care Physician: Dr. Temo Cruz MD Reason For Visit: ACUTE ETOH INTOXICATION WITH PENDING WITHDRAWAL Diagnosis Discharge Diagnosis (1) Alcohol withdrawal: Status: Acute Code(s): F10.939 - Alcohol use, unspecified with withdrawal, unspecified (2) Acute alcohol intoxication: Status: Acute Code(s): F10.929 - Alcohol use, unspecified with intoxication, unspecified Medications at Discharge Home Medications folic acid 1 mg tablet 1 mg PO DAILY vit 04/28/24 pantoprazole 40 mg tablet,delayed release 40 mg PO DAILY heartburn 04/28/24 propranolol 60 mg capsule,24 hr,extended release 60 mg PO DAILY bp 04/28/24 thiamine HCl (vitamin B1) 100 mg tablet 100 mg PO DAILY vit 04/28/24 Hospital Course Operations None Procedures None Summary of Care Provided Minutes Spent on Discharge: 32 Hospital Course: Per HPI: AVELINO JULIO, is a 54 M who presented to the emergency department [facility] on 04/27/2024 after he was found by his friends with multiple empty bottles of vodka in his home. His friends reported on presentation that he drinks about a half a bottle of hard liquor per day. Patient admits to about 1/5 of hard liquor daily. Patient reported that his last drink was on the morning of admission. Friends reported that he did have a fall while he was sober about a month ago and hit his head and he is currently undergoing treatment for concussion. His friends reported that his is currently not home and his drinking had increased over the past couple days. Patient was initially very reluctant to stay in the hospital and ramp paperwork was not signed however the patient was agreeable for admission to go through detox and to see 180. Patient denies any tobacco abuse or any other substance use. Vital signs on presentation demonstrated temperature of 98.2, heart rate 118, respiratory is 18, blood pressure is 151/101, pulse ox was 93% on room air. He does have a history of pancytopenia related to alcoholic cirrhosis however due to dehydration his counts are elevated with a normal white count and hemoglobin as well as platelet count at the time of presentation. I do suspect this is all related to hemoconcentration. Coags are overtly unremarkable. Chemistry panel shows normal electrolytes with a serum creatinine of 1.2 having a baseline of 0.7-0.9. So he does appear to be a bit dehydrated. His initial blood sugar was 131 however this was nonfasting. His lactic acid was 7.9 initially but after hydration improved to 74.3 fairly rapidly. Is unclear if he had a seizure at home prior to presentation that created lactic acidosis as well. His anion gap and carbon dioxide levels were normal at 12 and 26 respectively. Bilirubin was normal. AST is mildly elevated at 86 with a normal ALT. Ammonia level was 30. Cardiac enzymes were unremarkable. Lipase was 30. His UA is unremarkable. Toxicology screen was unremarkable except for positive ethyl alcohol level at 431. Chest x-ray was unremarkable for any acute findings. EKG was sinus tachycardia with a heart rate of 125, normal intervals and axis with no ST-T wave changes concerning for acute ischemia. He was reluctantly agreeable to stay however upon my consultation with him he was concerned about his job and I suspect he is high risk for leaving AGAINST MEDICAL ADVICE. Hospital Course: 1. Acute alcohol intoxication with withdrawal and dehydration/chronic pancytopenia/alcoholic liver disease with cirrhosis ? Continue with the alcohol withdrawal protocol ? Plan for 180 to evaluate for discharge planning ? Will replete any electrolyte derangements ? Will need outpatient GI follow-up for his liver disease - He completed his detox and currently has a CIWA of 0. I discussed with him the plan for discharge and he expressed understanding of the risk and benefits of going home and would like to go today. He will f/u with 180 today on discharge. Physical Exam Narrative General: Alert, Oriented x3, Cooperative, No apparent distress HEENT: Atraumatic, PERRLA, EOMI, Normocephalic Oral: Moist Mucosa Neck: Supple, No JVD Lungs: Clear to auscultation, Normal air movement, No rhonchi, No wheeze, No rales Cardiovascular: Tachycardic, Regular Rhythm, Normal S1, Normal S2, No murmurs Abdomen: Soft, Non Tender, Non-Distended, No Hepato-splenomegaly Extremities: No edema, Capillary Refill Less than 3 Seconds Skin: No rashes, No breakdown Musculoskeletal: No Tenderness to Palpation of Joints or Extremities Neurological: No focal neurological deficits, Motor Exam 5/5 strength throughout, Sensory exam intact to light touch and pain Psych/Mental Status: Normal affect Weight / BMI Weight Weight: 203 lb 14.841 oz Body Mass Index (BMI) 28.4 ABG / Lab / Microbiology Data 07/17/24 06:41 04/29/24 07:13 Laboratory: Laboratory Results - last 24 hr 04/29/24 07:13: Sodium 137, Potassium 3.9, Chloride 104, Carbon Dioxide 26.0, Anion Gap 7, BUN 5 L, Creatinine 0.83, Estim Creat Clear Calc 118.26, Est GFR (MDRD) Af Amer 124, Est GFR (MDRD) Non-Af 103, BUN/Creatinine Ratio 6.0 L, Glucose 100, Calcium 8.3 L, Phosphorus 2.2 L, Magnesium 1.9 04/30/24 05:33: Phosphorus 2.7 D/C Instructions Discharge Diet: No restrictions Return to work on: 05/03/24 Call your doctor if you observe: Fever of 101 or Higher, Shortness of breath, Dizziness, Fainting spells, Swelling in the ankles, Chest pain and Increased palpitations (irregular heartbeat) Meaningful Use Info Meaningful Use Meaningful Use Diagnoses (Choose all that apply): None applicable Ischemic Stroke Statin Dosing Therapy Reference: STATIN DOSE THERAPY REFERENCE: * Patients > 75 years receive moderate or high dose statin therapy. * Patients 75 years or YOUNGER should receive HIGH intensity statin dose unless contraindicated. You will be required to document reason for non-treatment if statin daily dose does not meet guidelines. HIGH DOSE STATIN THERAPY DAILY Atorvastatin > than or = to 40 mg Rosuvastatin > than or = to 20 mg Amlodipine + Atorvastatin > than or = to 2.5/40 mg Ezetimibe + Simvastatin 10/80 mg Simvastatin 80mg Discharge Plan Admission Admit Date/Time: 04/27/24 17:28 Attending Provider: Nikunj Cage Primary Care Provider: Temo Cruz Consulting Providers: Lita Marte Discharge Orders/Prescriptions Prescriptions: Continued folic acid 1 mg tablet 1 mg PO DAILY pantoprazole 40 mg tablet,delayed release (DR/EC) 40 mg PO DAILY propranolol 60 mg capsule,extended release 24 hr 60 mg PO DAILY thiamine HCl (vitamin B1) 100 mg tablet 100 mg PO DAILY Referrals / Follow Up: Temo Cruz MD [Primary Care Provider] - Within 1 Week Disposition Disposition (needs filled in before D/C Order can be placed): Home, Self Care Charges/Coding Visit Charges Inpatient E&M: 26580 Disch Hosp >30min
[2024-04-30 09:23] VITALS: O2SAT 99
--- NOTE | 2024-04-30 09:39 | PHA.DC.MR.R ---
Pharmacy [facility] has performed discharge medication reconciliation for this patient. The patient's discharge medication list was reviewed for discrepancies and discrepancies were resolved. Medications at Discharge Home Medications folic acid 1 mg tablet 1 mg PO DAILY vit 04/28/24 pantoprazole 40 mg tablet,delayed release 40 mg PO DAILY heartburn 04/28/24 propranolol 60 mg capsule,24 hr,extended release 60 mg PO DAILY bp 04/28/24 thiamine HCl (vitamin B1) 100 mg tablet 100 mg PO DAILY vit 04/28/24
== END 2024-04-30 09:53 | disposition home or self-care (01) | DRG 897 ==
LOC: ED 17:11 → MS3 17:33
PROVIDERS: Admitting Provider Internal Medicine; Emergency Provider Emergency Medicine; PCP Family Medicine; Visit Provider Family Medicine
DX: F10.229 Alcohol dependence with intoxication, unspecified (principal); D61.818 Other pancytopenia; E87.20 Acidosis, unspecified; K70.30 Alcoholic cirrhosis of liver without ascites; F10.239 Alcohol dependence with withdrawal, unspecified; I10 Essential (primary) hypertension; K21.9 Gastro-esophageal reflux disease without esophagitis; E86.0 Dehydration; Y90.8 Blood alcohol level of 240 mg/100 ml or more; Z87.891 Personal history of nicotine dependence
CPT/HCPCS: 36415; 70450; 71045; 80048; 80053; 80307; 81001; 82077; 82140; 83605; 83690; 83735; 84100; 84484; 85025; 85610; 85730; 93005; 99252; 99285; J7030; J7050; A4216; G0463